=== PATIENT | female | born 1930 | race Caucasian/White ===

== ENCOUNTER → 2016-06-25 | Outpatient (REF) | payer MEDICARE ==
[~2016-06-25] MED LIST: ALBU17IN INH; AMLO10CA PO; AMLO10TA2 PO; ARMIDEX OR; ASCO25TA PO; ASPI81TA11 PO; ASPI81TAEC PO; ATEN50TA2 PO; AZIT250T3 PO; BENA20TA2 PO; CALC600T21 PO; FURO40TA2 PO; GLIP5TAB PO; HYDR1TAB97 PO; INSULANT SC; LEVA500T PO; LOTR10CA PO; MULTCAP PO; PRAV40TA PO; PRED10TA PO; TAMO20TA4 PO; TYLE325T5 PO; VITMTA PO; eye drops; lantus insulin SUBQ
== END ==
LOC: M LAB REF 12:38
PROVIDERS: ATTEND Internal Medicine Medical Oncology
DX: C50.919 Malignant neoplasm of unspecified site of unspecified female breast (principal)

== ENCOUNTER → 2016-07-08 | Outpatient (CLI) | payer MEDICARE ==
[~2016-07-08] MED LIST changes: +HYDR-3713 PO; -HYDR1TAB97 PO
== END ==
LOC: M ONCR 08:33
PROVIDERS: ATTEND Radiology Radiation Oncology
DX: C50.912 Malignant neoplasm of unspecified site of left female breast (principal)

== ENCOUNTER → 2016-07-30 | Outpatient (REF) | payer MEDICARE | LOC: M LAB REF 16:36 | PROVIDERS: ATTEND Internal Medicine Medical Oncology | DX: C50.919 Malignant neoplasm of unspecified site of unspecified female breast (principal) ==

== ENCOUNTER → 2017-01-19 | Outpatient (CLI) | payer MEDICARE ==
[~2017-01-19] MED LIST changes: +ASPI-101 PO; -ASPI81TA11 PO; +AZIT-12 PO; -AZIT250T3 PO; -BENA20TA2 PO; +BENA20TA8 PO; -CALC600T21 PO; +CALC600T60 PO; +LEVA1TAB2 PO; -LEVA500T PO
--- NOTE | 2017-01-19 11:26 | REP ---
CT of the chest without IV contrast: The patient has a history of breast carcinoma and right breast lumpectomy left breast mastectomy. Comparison is the chest CT and 02/07/2016. On the comparison study there was a 2 mm nodule in the left lower lobe. This nodule is again identified today on image 52 and again measures 2 mm. There are no other lung nodules or masses. There are no infiltrates or effusions. The unenhanced thoracic aorta is unremarkable except for occasional calcified atheroma. Cardiac size is borderline enlarged. This is unchanged. There is atheromatous calcification in the mitral annulus, unchanged. There is no pericardial effusion. There are no acute infiltrates or effusions. There is no mediastinal adenopathy. There is no axillary adenopathy, however, there are surgical clips in the axilla bilaterally. This is unchanged. The visualized upper abdominal contents are unremarkable. Surgical clips are again noted in the gallbladder fossa. There is no adrenal mass. Left renal cortical cysts is again identified, unchanged. Impression: No evidence of metastatic disease in the chest. Borderline cardiomegaly. Calcified atheroma in the mitral annulus, unchanged. Left renal cyst, unchanged. No acute infiltrate or effusion. Signed by Prosper Wheat MD 01/19/2017 11:17 A
== END ==
LOC: M RAD 10:16
PROVIDERS: ATTEND Nurse Practitioner Family
DX: R91.8 Other nonspecific abnormal finding of lung field (principal); I51.7 Cardiomegaly; N28.1 Cyst of kidney, acquired; I34.8 Other nonrheumatic mitral valve disorders

== ENCOUNTER → 2017-03-25 | Outpatient (REF) | payer MEDICARE ==
[2017-03-25 14:02] LABS: PERCENT SATURATION 17.3 % (13.2-45.0)
== END ==
LOC: M LAB REF 13:14
PROVIDERS: ATTEND Internal Medicine Medical Oncology
DX: C50.919 Malignant neoplasm of unspecified site of unspecified female breast (principal)

== ENCOUNTER → 2017-05-27 | Outpatient (REF) | payer MEDICARE ==
[2017-05-27 14:21] LABS: PERCENT SATURATION 19.9 % (13.2-45.0)
== END ==
LOC: M LAB REF 13:24
PROVIDERS: ATTEND Internal Medicine Medical Oncology
DX: C50.919 Malignant neoplasm of unspecified site of unspecified female breast (principal)

== ENCOUNTER → 2017-08-12 | Outpatient (REF) | payer MEDICARE ==
[2017-08-14 10:08] LABS: CA15-3 ANTIGEN 15.9 U/ML (<32.4)
== END ==
LOC: M LAB REF 13:08
DX: C50.919 Malignant neoplasm of unspecified site of unspecified female breast (principal)
CPT/HCPCS: 86300

== ENCOUNTER 2017-09-26 12:16 | Emergency (ER) | payer MEDICARE ==
[2017-09-26 13:21] LABS: KETONE, URINE AUTO RFX NEGATIVE (NEGATIVE); MUCUS, URINE RFX SMALL (NEGATIVE); NITRITE, URINE AUTO RFX NEGATIVE (NEGATIVE); RBC, URINE AUTO RFX TNTC /HPF (0-3); RENAL EPITHELIAL CELLS RFX 1 /HPF; SPECIFIC GRAVITY UR AUTO RFX 1.018 (1.002-1.035); SQUAM EPITHELIAL CELL UR AURFX 2 /HPF (0-6); TRANSITIONAL EPITHELIAL AU RFX 1 /HPF
[2017-09-26 13:22] LABS: LEUKOCYTE ESTERASE UR AUTO RFX TRACE (NEGATIVE); WBC, URINE AUTO RFX 15 /HPF (0-3)
[2017-09-26 13:23] LABS: BASO # 0.1 10^3/uL (0.0-0.2); BASO % 0.4 % (0.0-1.0); EOS # 0.1 10^3/uL (0.0-0.50); EOS % 0.9 % (0.0-3.0); HEMATOCRIT 37.6 % (36.0-47.0); HEMOGLOBIN 11.9 g/dl (12.0-15.5); IMMATURE GRANULOCYTE % 0.4 % (0-3.0); LYMPH # 1.9 10^3/uL (1.5-4.5); MEAN CORPUSCULAR HEMOGLOBIN 31.2 pg (27.0-33.0); MEAN CORPUSCULAR HGB CONC 31.6 g/dl (32.0-36.5); MEAN CORPUSCULAR VOLUME 98.4 fl (80.0-96.0); MONO # 0.8 10^3/uL (0.0-0.8); MONO % 6.4 % (0.0-5.0); NEUTROPHILS # 9.5 10^3/uL (1.8-7.7); NEUTROPHILS % 76.9 % (36.0-66.0); PLATELET COUNT, AUTOMATED 326 10^3/uL (150-450); RED BLOOD COUNT 3.82 10^6/uL (4.00-5.40); RED CELL DISTRIBUTION WIDTH 12.6 % (11.5-14.5); WHITE BLOOD COUNT 12.4 10^3/uL (4.0-10.0)
[2017-09-26 13:34] LABS: INR 0.97
[2017-09-26 13:43] LABS: ANION GAP 6 MEQ/L (8-16); BLOOD UREA NITROGEN 40 MG/DL (7-18); CALCIUM LEVEL 10.9 MG/DL (8.8-10.2); CARBON DIOXIDE LEVEL 31 MEQ/L (21-32); CHLORIDE LEVEL 108 MEQ/L (98-107); CREATININE FOR GFR 1.54 MG/DL (0.55-1.30); GLOMERULAR FILTRATION RATE 34.1 (>32); GLUCOSE, FASTING 103 MG/DL (70-100); SODIUM LEVEL 145 MEQ/L (136-145)
== END 2017-09-26 14:37 | disposition home or self-care (01) ==
LOC: M ED 12:16
DX: K60.2 Anal fissure, unspecified (principal); R31.21 Asymptomatic microscopic hematuria; K59.00 Constipation, unspecified; I11.9 Hypertensive heart disease without heart failure; I25.10 Atherosclerotic heart disease of native coronary artery without angina pectoris; E78.00 Pure hypercholesterolemia, unspecified; H40.9 Unspecified glaucoma; K21.9 Gastro-esophageal reflux disease without esophagitis; C50.919 Malignant neoplasm of unspecified site of unspecified female breast; Z90.13 Acquired absence of bilateral breasts and nipples; M81.0 Age-related osteoporosis without current pathological fracture; M54.9 Dorsalgia, unspecified; E11.9 Type 2 diabetes mellitus without complications; Z79.899 Other long term (current) drug therapy; Z79.84 Long term (current) use of oral hypoglycemic drugs; Z79.82 Long term (current) use of aspirin
CPT/HCPCS: 80048

== ENCOUNTER → 2017-10-07 | Outpatient (CLI) | payer MEDICARE | LOC: M RAD 10:25 | DX: C50.919 Malignant neoplasm of unspecified site of unspecified female breast (principal); R91.8 Other nonspecific abnormal finding of lung field; N28.1 Cyst of kidney, acquired; Z90.13 Acquired absence of bilateral breasts and nipples | CPT/HCPCS: 71250 ==

== ENCOUNTER → 2017-10-14 | Outpatient (REF) | payer MEDICARE ==
[2017-10-16 11:47] LABS: CA15-3 ANTIGEN 19.1 U/ML (<32.4)
== END ==
LOC: M LAB REF 12:59
DX: C50.919 Malignant neoplasm of unspecified site of unspecified female breast (principal)
CPT/HCPCS: 86300

== ENCOUNTER → 2017-10-15 | Outpatient (REF) | payer MEDICARE | LOC: M LAB REF 17:21 | DX: N39.0 Urinary tract infection, site not specified (principal) | CPT/HCPCS: 87186 ==

== ENCOUNTER 2017-11-11 12:01 | Day surgery (SDC) | payer MEDICARE ==
[2017-11-11 13:25] LABS: BEDSIDE GLUCOSE 204 MG/DL (83-110)
[2017-11-11] MEDS ORDERED: PROPOFOL 200 MG/20 ML VIAL As Ordered (14:28)
== END 2017-11-11 15:30 | disposition home or self-care (01) ==
LOC: M OPP 12:01
DX: K64.9 Unspecified hemorrhoids (principal); D12.5 Benign neoplasm of sigmoid colon; D12.4 Benign neoplasm of descending colon; K57.30 Diverticulosis of large intestine without perforation or abscess without bleeding; K62.5 Hemorrhage of anus and rectum; R13.13 Dysphagia, pharyngeal phase; K25.9 Gastric ulcer, unspecified as acute or chronic, without hemorrhage or perforation; K44.9 Diaphragmatic hernia without obstruction or gangrene
CPT/HCPCS: 45385

== ENCOUNTER → 2017-12-14 | Outpatient (REF) | payer MEDICARE ==
[2017-12-15 10:06] LABS: CA15-3 ANTIGEN 19.9 U/ML (<32.4)
== END ==
LOC: M LAB REF 13:16
DX: C50.411 Malignant neoplasm of upper-outer quadrant of right female breast (principal); Z17.0 Estrogen receptor positive status [ER+]; C77.3 Secondary and unspecified malignant neoplasm of axilla and upper limb lymph nodes
CPT/HCPCS: 86300

== ENCOUNTER → 2018-02-10 | Outpatient (REF) | payer MEDICARE ==
[2018-02-12 10:37] LABS: CA15-3 ANTIGEN 20.4 U/ML (<32.4)
== END ==
LOC: M LAB REF 17:11
DX: C77.3 Secondary and unspecified malignant neoplasm of axilla and upper limb lymph nodes (principal); Z17.0 Estrogen receptor positive status [ER+]; C50.411 Malignant neoplasm of upper-outer quadrant of right female breast
CPT/HCPCS: 86300

== ENCOUNTER 2018-04-03 15:00 | Emergency (ER) | payer MEDICARE ==
[2018-04-03 15:28] LABS: BASO % 0.4 % (0.0-1.0); EOS # 0.3 10^3/uL (0.0-0.50); EOS % 2.6 % (0.0-3.0); HEMATOCRIT 35.2 % (36.0-47.0); HEMOGLOBIN 11.2 g/dl (12.0-15.5); IMMATURE GRANULOCYTE % 0.3 % (0-3.0); LYMPH # 1.9 10^3/uL (1.5-4.5); LYMPH % 17.8 % (24.0-44.0); MEAN CORPUSCULAR HEMOGLOBIN 31.5 pg (27.0-33.0); MEAN CORPUSCULAR HGB CONC 31.8 g/dl (32.0-36.5); MEAN CORPUSCULAR VOLUME 98.9 fl (80.0-96.0); MONO % 9.9 % (0.0-5.0); NEUTROPHILS # 7.2 10^3/uL (1.8-7.7); PLATELET COUNT, AUTOMATED 321 10^3/uL (150-450); RED BLOOD COUNT 3.56 10^6/uL (4.00-5.40); RED CELL DISTRIBUTION WIDTH 13.8 % (11.5-14.5); VENOUS BASE EXCESS 2.3 (-2.0-2.0); VENOUS HCO3 29.1 MEQ/L (23.0-27.0); VENOUS O2 SATURATION 63.3 % (60.0-80.0); VENOUS PARTIAL PRESSURE O2 35.5 mmHg (30.0-50.0); VENOUS PH 7.334 UNITS (7.330-7.430); VENOUS STANDARD HCO3 25.8 MEQ/L; VENOUS TOTAL CO2 30.8 MEQ/L (24.0-28.0); WHITE BLOOD COUNT 10.4 10^3/uL (4.0-10.0)
[2018-04-03 15:51] LABS: ALBUMIN 3.3 GM/DL (3.2-5.2); ALBUMIN/GLOBULIN RATIO 0.73 (1.00-1.93); ALKALINE PHOSPHATASE 59 U/L (45-117); ALT/SGPT 23 U/L (12-78); ANION GAP 8 MEQ/L (8-16); AST/SGOT 17 U/L (7-37); BILIRUBIN,DIRECT < 0.1 MG/DL (0.0-0.2); BILIRUBIN,TOTAL 0.1 MG/DL (0.2-1.0); BLOOD UREA NITROGEN 33 MG/DL (7-18); CALCIUM LEVEL 9.4 MG/DL (8.8-10.2); CARBON DIOXIDE LEVEL 28 MEQ/L (21-32); CHLORIDE LEVEL 106 MEQ/L (98-107); CREATININE FOR GFR 1.45 MG/DL (0.55-1.30); GLOMERULAR FILTRATION RATE 36.4 (>32); GLUCOSE, FASTING 135 MG/DL (70-100); NT-PRO BNP 1059 PG/ML (<450); POTASSIUM SERUM 4.6 MEQ/L (3.5-5.1); SODIUM LEVEL 142 MEQ/L (136-145); TOTAL PROTEIN 7.8 GM/DL (6.4-8.2)
[2018-04-03] MEDS: FUROSEMIDE 40 MG TAB PO (16:22)
== END 2018-04-03 16:52 | disposition home or self-care (01) ==
LOC: M ED 15:00
DX: I50.9 Heart failure, unspecified (principal); E11.9 Type 2 diabetes mellitus without complications; I10 Essential (primary) hypertension; K21.9 Gastro-esophageal reflux disease without esophagitis
CPT/HCPCS: 71046

== ENCOUNTER → 2018-07-08 | Outpatient (CLI) | payer MEDICARE ==
[~2018-07-08] MED LIST changes: -AMLO10TA2 PO; +AMLO10TA5 PO; -ASPI-101 PO; +ASPI-225 PO; +MIRA3350 PO; -TAMO20TA4 PO; +TAMO20TA8 PO; +TORS10TA3 PO
--- NOTE | 2018-07-08 15:42 | REP ---
Chest two views HISTORY: Shortness of breath Comparison: 04/03/2018 An increase in interstitial markings is present in the lungs consistent with chronic interstitial change. Patchy density is present in the right lower lobe consistent with atelectasis or infiltrate. There is blunting of the right costophrenic angle due to a pleural effusion. The heart is normal in size. The pulmonary vasculature is normal in appearance. The bony structure is intact. IMPRESSION: 1. Chronic interstitial change. 2. Right lower lobe atelectasis or infiltrate. 3. Small right pleural effusion. Electronically Signed by Lee Ferguson MD 07/08/2018 03:34 P
== END ==
LOC: M RAD 15:06
PROVIDERS: ATTEND Internal Medicine
DX: R91.8 Other nonspecific abnormal finding of lung field (principal); J90 Pleural effusion, not elsewhere classified; R06.02 Shortness of breath

== ENCOUNTER 2018-07-09 20:02 | Inpatient (IN) | payer MEDICARE ==
[~2018-07-09] VITALS: Ht 157.5 cm; Wt 72.1 kg
[2018-07-09] MEDS ORDERED: NITROGLYCERIN 2% OINT 1 GM *U/D* PKT TOP ONE (20:45)
[2018-07-09] MEDS ORDERED: IPRATROPIUM 0.5MG/ALBUTEROL 2.5MG INH SOL UD 3ML (DUONEB)(J7620) NEB ONE (20:45)
[2018-07-09] MEDS ORDERED: FUROSEMIDE 100 MG/10 ML VIAL (J1940) IV ONE (20:45)
[2018-07-09 21:22] LABS: BASO % 0.4 % (0.0-1.0); EOS # 0.1 10^3/uL (0.0-0.50); HEMATOCRIT 32.6 % (36.0-47.0); HEMOGLOBIN 10.2 g/dl (12.0-15.5); LYMPH # 1.4 10^3/uL (1.5-4.5); MEAN CORPUSCULAR HEMOGLOBIN 31.5 pg (27.0-33.0); MEAN CORPUSCULAR HGB CONC 31.3 g/dl (32.0-36.5); MEAN CORPUSCULAR VOLUME 100.6 fl (80.0-96.0); MONO # 0.8 10^3/uL (0.0-0.8); MONO % 8.3 % (0.0-5.0); NEUTROPHILS # 7.7 10^3/uL (1.8-7.7); NEUTROPHILS % 75.9 % (36.0-66.0); PLATELET COUNT, AUTOMATED 328 10^3/uL (150-450); RED BLOOD COUNT 3.24 10^6/uL (4.00-5.40); WHITE BLOOD COUNT 10.1 10^3/uL (4.0-10.0)
[2018-07-09 21:33] LABS: INR 1.07; PARTIAL THROMBOPLASTIN TIME 26.3 SECONDS (25.4-37.6)
[2018-07-09 21:47] LABS: BLOOD UREA NITROGEN 61 MG/DL (7-18); CARBON DIOXIDE LEVEL 31 MEQ/L (21-32); CHLORIDE LEVEL 102 MEQ/L (98-107); CPK CREATINE PHOSPHOKINASE 46 U/L (26-192); CREATININE FOR GFR 2.17 MG/DL (0.55-1.30); GLOMERULAR FILTRATION RATE 22.9 (>32); GLUCOSE, FASTING 150 MG/DL (70-100); MB/CK RELATIVE INDEX 2.61 (< OR =4); NT-PRO BNP 1136 PG/ML (<450); POTASSIUM SERUM 4.9 MEQ/L (3.5-5.1); SODIUM LEVEL 140 MEQ/L (136-145); TROPONIN I < 0.02 NG/ML (< 0.10)
[2018-07-09 22:11] LABS: ABG BASE EXCESS 3.4 (-2.0-2.0); ABG HCO3 27.9 MEQ/L (22.0-26.0); ABG O2 SATURATION 97.7 % (95.0-99.0); ABG PARTIAL PRESSURE CO2 41.8 mmHg (35.0-45.0); ABG PARTIAL PRESSURE O2 98.9 mmHg (75.0-100.0); ABG STANDARD HCO3 27.5 MEQ/L (22.0-26.0); ABG TOTAL CO2 29.2 MEQ/L (23.0-31.0); ABG pH (ARTERIAL) 7.442 UNITS (7.350-7.450)
[2018-07-10] MEDS ORDERED: HumaLOG INSULIN (NovoLOG) PER UNIT SC SCH
[2018-07-10] MEDS ORDERED: GLUCOSE 4 GM CHEW TABLET PO PRN ×2 (00:45→03:45)
[2018-07-10] MEDS ORDERED: DEXTROSE 50% 50 ML SYRINGE IV PRN ×2 (00:45→03:45)
[2018-07-10] MEDS ORDERED: GLUCAGON FOR INJ 1 MG VIAL (J1610) SC PRN ×2 (00:45→03:45)
[2018-07-10] MEDS ORDERED: AZITHROMYCIN 250 MG TAB PO SCH (00:49)
[2018-07-10] MEDS ORDERED: IPRATROPIUM 0.5MG/ALBUTEROL 2.5MG INH SOL UD 3ML (DUONEB)(J7620) NEB PRN (01:00)
[2018-07-10 02:00] VITALS: BP 135/79
[2018-07-10] MEDS ORDERED: cefTRIAXone SOD 1 GM in D5W MINI-BAG PLUS 50 ML IV SCH (02:00)
--- NOTE | 2018-07-10 02:19 | REPVR ---
EXAM: CT Chest Without Contrast EXAM DATE/TIME: 07/10/2018 12:38 AM CLINICAL HISTORY: 87 years old, female; Chest pain; Additional info: Assess effusion and assess for consolidation. TECHNIQUE: Axial computed tomography images of the chest without intravenous contrast. All CT scans at this facility use at least one of these dose optimization techniques: automated exposure control; mA and/or kV adjustment per patient size (includes targeted exams where dose is matched to clinical indication); or iterative reconstruction. Coronal and sagittal reformatted images were created and reviewed. MIP reconstructed images were created and reviewed. COMPARISON: CT Chest without contrast 10/07/2017 10:32 AM FINDINGS: Thyroid: There is a 14 mm low attenuation nodule in the left lobe of the thyroid gland, which is stable compared to the prior CT scans on 10/07/2017 and 06/21/2015. Lungs: There is an 8 mm nodular opacity in the right upper lobe (image 40 of the axial series 201), which is new compared to the prior CT scan on 10/07/2017. There are subpleural nodular opacities along the major fissure projecting into the right upper lobe and measuring up to 10 mm, which are new compared to the prior CT scan on 10/07/2017 (images 29-37 of the axial series 202). There are 4 mm and 5 mm subpleural nodules in the right middle lobe (image 55 of the axial series 202). There is a 2 mm pulmonary nodule in the left lower lobe (image 64 of the axial series 201), which is unchanged compared to the prior CT scans on 10/07/2017 and 06/21/2015. There is compressive atelectasis in the right lower lobe. Atelectasis is also noted in the right middle lobe. No lung consolidation is noted. Pleural space: There is a small to moderate right pleural effusion that measures water density and is not loculated. Heart: No cardiomegaly or pericardial effusion is noted. There are extensive mitral annular calcifications. Coronary artery calcifications and aortic valve calcifications are also present. Mediastinum: There is a soft tissue density mass in the mediastinum in the right paratracheal, pretracheal, subcarinal, and right hilar regions, which measures up to 5.4 cm. Aorta: There is no thoracic aortic aneurysm or intramural hematoma. [id number] atherosclerotic calcifications are present. Lymph nodes: There is prevascular lymphadenopathy, with the largest prevascular lymph node measuring 13 mm. Bones/joints: The imaged bony structures are intact. There is no suspicious osteolytic or osteoblastic lesion. There are bridging paraspinal osteophytes at multiple contiguous levels in the thoracic spine, which is compatible with diffuse idiopathic skeletal hyperostosis. Soft tissues: Postoperative changes are noted from a right lumpectomy, with scarring of the right breast. Gallbladder: There are surgical clips in the gallbladder fossa secondary to a cholecystectomy. Spleen: Unremarkable. No splenomegaly is noted. Adrenals: There is a 1.5 cm left adrenal nodule that measures 17 Hounsfield units, which is unchanged compared to the prior CT scans on 10/07/2017 and 06/21/2015 and most compatible with an adrenal adenoma. The right adrenal gland is unremarkable. Kidneys and ureters: There is a 2.5 cm simple cyst in the midpole of the left kidney, which is similar in appearance compared to the prior CT scans on 10/07/2017 and 06/21/2015. The kidneys were not fully imaged. Stomach and bowel: There are diverticula arising from the second and third portions of the duodenum, which were also present in the prior CT scan/ IMPRESSION: 1. 5.4 cm irregular mass in the mediastinum in the right paratracheal, pretracheal, subcarinal, and right hilar regions and prevascular lymphadenopathy, which may indicate metastatic disease. 2. Development of several and nodular opacities in the right lung since the prior chest CT on 10/07/2017, which may indicate metastatic disease. See management guidelines below. 3. Small to moderate right pleural effusion with associated compressive atelectasis. No consolidation. [employer] 2017 GUIDELINES FOR MANAGEMENT OF INCIDENTAL PULMONARY NODULES: Multiple solid nodules >8 mm: In a low risk patient, CT at 3-6 months, then consider CT at 18-24 months. Use most suspicious nodule as guide to management. Follow-up intervals may vary according to size and risk. In a high risk patient, CT at 3-6 months, then at 18-24 months. High Risk Patients as defined in the 2017 Fleischner Society Guidelines: ?History of heavy smoking ?Exposure to asbestos, radium, or uranium ?Family history of lung cancer ?Emphysema and pulmonary fibrosis (IPF in particular) ?Older age ?Sex (females at greater risk than men) ?Race (Blacks and at higher risk) ?Marginal spiculation / suspicious morphology ?Upper lobe location (also apex) ?Multiple nodules (2-5 nodules highest risk) ?Exceptions, such as technically suboptimal scanning Zahira H, Alvin DP, Fred ESPINOZA, et al. Guidelines for Management of Incidental Pulmonary Nodules Detected on CT images: From the Fleischner Society 2017. Radiology, December 2016;284(1):228-243. http://pubs.rsna.org/doi/pdf/[email or web address] Electronically signed by: Boni Flores On 07/10/2018 02:18:34 AM
[2018-07-10] MEDS: METOPROLOL TART 25 MG TABLET PO SCH ×3 (03:17→21:01)
[2018-07-10] MEDS: PRAVASTATIN 20 MG TAB PO SCH ×2 (03:28→21:02)
[2018-07-10] MEDS: LEVEMIR (INSULIN DETEMIR) 1 UNITS/0.01ML SC SCH ×2 (03:29→21:02)
[2018-07-10] MEDS: HEPARIN SOD (PORCINE) 5000 UNITS/ML VIAL SC SCH ×3 (05:20→21:02)
[2018-07-10 06:00] VITALS: BP 143/65
[2018-07-10] MEDS: HumaLOG INSULIN (NovoLOG) PER UNIT SC SCH ×4 (07:30→20:50)
[2018-07-10] MEDS: ACETAMINOPHEN TAB 650MG DOSE (2X325MG) PO SCH ×2 (09:00→21:01)
[2018-07-10] MEDS ORDERED: ATENOLOL 50 MG TAB PO SCH (09:00)
[2018-07-10] MEDS: ASPIRIN 81 MG ENTERIC TAB PO SCH (09:00)
[2018-07-10] MEDS ORDERED: amLODIPine 10 MG TAB PO SCH (09:00)
--- NOTE | 2018-07-10 09:10 | REP ---
AP PORTABLE CHEST: 07/09/2018. Comparison: Chest x-ray 07/08/2018, 04/03/2018. Clinical history: Dyspnea. Findings: The moderate right pleural effusion and some elevation right diaphragm as before. Pulmonary arteries appear prominent. Patient is slightly rotated. Mediastinal widening is likely related to that but other possibilities exist. There is a small amount of fluid tracking along the major fissure. Left lung well inflated and clear. Calcified aorta at the arch without gross aneurysm. Patchy atelectasis or infiltrate perihilar and right lower lobes. Degenerative changes throughout the spine. There are axillary surgical clips on the right side and clips in the left breast. Impression: 1. Right pleural effusion with fluid tracking into the minor fissure with patchy atelectasis or infiltrates right mid and lower lung zone. 2. Hyperinflation and chronic changes in the left lung without effusion or infiltrate. Nodules or other findings could be obscured by the effusion and atelectasis on the right. 3. No carlitos edema. Axillary surgical clips on the right with the left breast or axillary surgical clips. Electronically Signed by Alex Sharpe MD 07/10/2018 01:19 P
[2018-07-10 09:24] LABS: APPEARANCE, URINE CLEAR (CLEAR); BACTERIA, URINE AUTO NEGATIVE (NEGATIVE); BILIRUBIN, URINE AUTO NEGATIVE (NEGATIVE); BLOOD, URINE BLOOD NEGATIVE (NEGATIVE); COLOR, URINE YELLOW (YELLOW); GLUCOSE, URINE (UA) AUTO NEGATIVE (NEGATIVE); KETONE, URINE AUTO NEGATIVE (NEGATIVE); LEUKOCYTE ESTERASE, URINE AUTO TRACE (NEGATIVE); NITRITE, URINE AUTO NEGATIVE (NEGATIVE); PROTEIN, URINE AUTO NEGATIVE (NEGATIVE); RBC, URINE AUTO 0 /HPF (0-3); SPECIFIC GRAVITY URINE AUTO 1.012 (1.002-1.035); SQUAMOUS EPITHELIAL CELL UR AU 0 /HPF (0-6); UROBILINOGEN, URINE AUTO 0.2 mg/dL (0.0-2.0); WBC, URINE AUTO 3 /HPF (0-3)
[2018-07-10] MEDS: TAMOXIFEN CITRATE 10 MG TAB PO SCH (10:57)
[2018-07-10] MEDS: MULTIVITAMINS/MINERALS THERAP 1 TAB PO SCH (10:57)
[2018-07-10] MEDS: ASCORBIC ACID 250 MG TAB PO SCH (10:57)
--- NOTE | 2018-07-10 10:59 | REP ---
RENAL ULTRASOUND COMPLETE: 07/10/2018: Clinical history: Worsening renal failure. Findings: There are no comparison studies. The right kidney is 9.4 x 4 x 3.9 cm. The left kidney 9.8 x 3.4 x 4.4 cm. Cortical echogenicity is preserved but there is cortical atrophy on that right side. There is an upper pole cyst 1.4 x 1.3 cm in increased sinus lipomatosis. No hydronephrosis or hydroureter nor solid mass. In the left kidney there is no hydronephrosis or hydroureter. Exam quality decreased by patient's inability to suspend respiration and the patient terminated the examination before it could be completed. Impression: 1. Limited examination for reasons stated above. Cortical atrophy and sinus lipomatosis on the right with a 1.4 cm upper pole cyst. No hydronephrosis, gross evidence for stone or mass. The cortical echogenicity was grossly intact.2. Some mild atrophy on the left. Limited study. Electronically Signed by Alex Sharpe MD 07/10/2018 01:22 P
[2018-07-10 11:00] VITALS: BP 102/48
--- NOTE | 2018-07-10 12:39 | HPE ---
DATE OF ADMISSION: 07/10/2018 CHIEF COMPLAINT: Worsening dyspnea on exertion, worsening cough, primarily in the morning, and orthopnea. HISTORY OF PRESENT ILLNESS: The patient is an 87-year-old female. She has a known past medical history of hypertension, diabetes, breast cancer, status post bilateral mastectomies, chronic kidney disease stage III, who presented to the emergency room with progressively worsening dyspnea on exertion on exertion and bilateral lower extremity edema and orthopnea. She is unable to sleep lying flat at this point in time, progressively worsening over the last 3 days. Decreased exercise tolerance, barely able to walk 50 feet without being short of breath, and worsening cough of thick whitish sputum, worse in the morning. She denies any chest pain, palpitations. Denies any abdominal pain, constipation, diarrhea, urinary symptoms. Of note, in the patient's history, she was seen here in the emergency room 2 months ago. She is a patient of Dr. Perales, She was subsequently discharged with the concern that she may have underlying congestive heart failure (CHF). She followed up with Dr. Perales. She was chronically on Lasix at this point in time, which was changed to torsemide and she was referred to [facility] where an echocardiogram was completed in the outpatient setting. I am unable to find the results of this echocardiogram. However, the patient states that she believes the results were sent to Dr. Perales and were normal, as far as she is aware. Besides being changed from Lasix 40 mg by mouth daily to torsemide 30 mg by mouth daily, her shortness of breath and orthopnea have actually worsened over the last 3 to 5 days. She denies fevers or chills. She does state that she tends to have a chronic cough for the past month, but has noted over the last week that her sputum production has increased significantly. The cough is primarily pronounced in the morning time, and she is able to clear thick whitish sputum. The cough improves throughout the day, but she continues to cough up thicker sputum than she typically has over the last few months. She does not appear toxic on examination. She denies any fevers or chills. No sick contacts. Chest x-ray in the emergency room shows bilateral pleural effusions, worse on the right when compared to the left. Review of the x-ray from three months prior is unremarkable x-ray. PAST MEDICAL HISTORY: See history of present illness. PAST SURGICAL HISTORY: She had a cholecystectomy and bilateral mastectomies, tonsillectomy, and she had radical lymphadenotomy in conjunction with her breast cancer. HOME MEDICATIONS: - Norvasc - aspirin - atenolol - benazepril - Lantus 30 at night - pravastatin - torsemide - glipizide - metformin - tamoxifen SOCIAL HISTORY: She denies tobacco, alcohol or illicit drug use. ALLERGIES: DORZOLAMIDE. FAMILY HISTORY: Heart disease. REVIEW OF SYSTEMS: 12-point review of systems was completed, all of which were negative except those listed in the history of present illness. VITAL SIGNS: On admission, temperature 98, pulse 82, respirations 18, blood pressure 174/72, saturating 92% on room air. PHYSICAL EXAMINATION: GENERAL: She is a well nourished, elderly female in no apparent distress. HEAD: Normocephalic, atraumatic. Eyes: Extraocular movements are intact. Pupils are equal, round and reactive to light. NECK: Supple with no jugular venous pressure. LUNGS: Unable to discern any crackles or wheezing. Clear at the lung bases, though she has small pleural effusions on the chest x-ray, worse on the right compared to the left. CARDIOVASCULAR: Regular rate and rhythm. She has a grade 2/6 systolic murmur best heard at the left lower sternal border and she has no rubs. ABDOMEN: Appears to be distended but nontender. No rebound or guarding. Hypoactive bowel sounds. EXTREMITIES: She has 1+ bilateral pitting edema. No calf tenderness. SKIN: Appears to be intact. No rashes, lesions or breakdown. NEUROLOGIC: She is alert and oriented times three. No focal deficits appreciated on the examination. LABORATORIES/IMAGING: Completed in the emergency room: White count 10, hemoglobin and hematocrit of 10/32, MCV 100, platelet count of 328. Coag within normal limits. Blood gas performed on 4 liters nasal cannula was 7.44/41/98/27/97. Fingerstick is 138. Chest x-ray, not officially read, shows hilar prominence, likely venous congestion, bilateral pleural effusions, worse on the left compared to the right, similar x-ray completed yesterday, I believe in the outpatient setting. In addition, her laboratories show a BNP of 1136. Initial troponin completed at 2118 hours was unremarkable. Electrocardiogram (EKG) shows underlying right bundle branch block. ASSESSMENT AND PLAN: 1. Dyspnea, multifactorial, likely exacerbation of underlying congestive heart failure (CHF) with superimposed acute renal failure and chronic kidney disease, unclear if there is an underlying pneumonia. We will get a CT of the chest to evaluate. The patient does have a worsening cough with productive sputum. No history of chronic obstructive pulmonary disease (COPD) or reactive airway disease. No history of smoking. 2. Possible congestive heart failure (CHF) exacerbation. We will get an echo. We will rule out acute coronary syndrome with serial troponin, EKG, telemetry. We will get a TSH. Lasix 40 mg IV daily. Strict input and output, daily weights, elevate the head of the bed. We will send a UA to assess for any urinary tract infection (UTI) for possible pneumonia. Again, we will start treatment empirically with ceftriaxone, azithromycin, oxygen as needed, DuoNeb as needed. We will send a sputum culture. Based on the CT of the chest, can deescalate or take the patient off antibiotics if suspicion for pneumonia, which at this point my suspicion for pneumonia is low as the patient does not appear toxic, can remove the antibiotics following the CT, as well as the clinical course. 3. Worsening renal failure. We will hold all nephrotoxic medications. We will continue Lasix and continue to monitor renal function. We will send urine lytes. We will get a renal ultrasound. We will hold benazepril. 4. Chronic medical conditions. For diabetes with nephropathy -- we will hold the metformin and glipizide. We will place on insulin sliding scale and continue Lantus 30 units at night. For hypertension, we will continue Norvasc, benazepril held in the setting of acute renal failure. We will also hold atenolol in the setting of acute renal failure. If he is renally cleared, then place on Lopressor 25 mg twice a day. History of breast cancer -- status post mastectomy. Continue tamoxifen. History of hyperlipidemia -- Continue pravastatin. 5. Supportive. Deep vein thrombosis (DVT) prophylaxis with heparin subcutaneously. Gastrointestinal prophylaxis not indicated. 6. Diet is cardiac, diabetic diet. Fluid restriction of 2 liters per day.
[2018-07-10] MEDS: FUROSEMIDE 40 MG/4 ML VIAL (J1940) IV SCH ×2 (12:54→16:46)
[2018-07-10 14:00] VITALS: BP 115/45
[2018-07-10 14:56] LABS: CPK CREATINE PHOSPHOKINASE 84 U/L (26-192); MB/CK RELATIVE INDEX 2.02 (< OR =4); TROPONIN I < 0.02 NG/ML (< 0.10)
--- NOTE | 2018-07-10 15:02 | CR ---
DATE OF CONSULTATION: 07/10/2018 REQUESTING PROVIDER: Dr. Duval REASON FOR CONSULTATION: I was asked by Dr. Duval to evaluate Ms. Kim for an abnormal chest CT scan. HISTORY OF PRESENT ILLNESS: Ms. Kim is an 87-year-old female who has noted for the past several days that she has had increased shortness of breath. She has noticed it some when she walks around but her biggest difficulty has been lying flat. She can no longer lie flat and has slept in her recliner for the past 3 days. In regards to dyspnea on exertion, she does not do much ambulation and uses a walker or cane around her apartment but has noticed recently that she is more short of breathe with her activities. She will note wheezing when she lies down, it is positional. That has been going on longer than her orthopnea. No chest pain or pressure. She has a cough that is productive of clear sputum in the morning. She also has postnasal drip. She does not cough the rest of the day. No hemoptysis. She notes lower extremity edema, but that has been better since she has had her legs elevated while sleeping in the recliner and also with a change in her diuretic. No paroxysmal nocturnal dyspnea. No gastroesophageal reflux disease (GERD) symptoms. No abdominal pain or emesis. No fevers, chills or drenching night sweats. No known upper respiratory infection or other acute illness. No ill contacts. Ms. Kim was brought to the emergency department last night by her niece because of these symptoms. It was felt at that time that she likely had an acute exacerbation of her underlying congestive heart failure (CHF), as well as superimposed acute on chronic renal failure. As part of her evaluation, she had a chest CT scan, which showed multiple abnormalities, which will be dictated below. It is because of these abnormalities that pulmonary service was consulted. Pertinent past medical history is that Ms. Kim has had several recurrences of breast cancer, for which she is on tamoxifen. She is evaluated every 3 months, her next 3 month evaluation is this coming Thursday. She has been told that she is not eligible for any further chemotherapy or radiation therapy. ALLERGIES: DORZOLAMIDE, BRIMONIDINE. MEDICATIONS: On admission: - acetaminophen 650 mg by mouth twice a day - amlodipine 10 mg by mouth daily - vitamin C 500 mg by mouth daily - aspirin 81 mg by mouth daily - atenolol 50 mg by mouth daily - benazepril 20 mg by mouth daily - calcium 600 mg by mouth twice a day - glipizide/metformin 5/500 two tablets by mouth daily - Lantus insulin 30 units subcutaneously at night - multivitamin one by mouth daily - Pravachol 40 mg by mouth at night - tamoxifen 20 mg by mouth daily - torsemide 30 mg by mouth daily PAST MEDICAL HISTORY: 1. Left breast cancer, originally diagnosed in 2001. A. Status post multiple treatments, including XRT, letrozole chemotherapy 12/12/2006 and anastrozole from 08/2006 to 05/2008. B. Status post left mastectomy 01/03/2007. 2. Right breast cancer, originally diagnosed 04/2010. A. Completed Taxol/ cyclophosphamide chemotherapy in 2010. B. Status post XRT to the right breast. C. Started anastrazole 07/2010. 3. History of right breast recurrence 05/2015. A. Started Fulvestrant 07/2015. B. Status post right simple mastectomy 05/2016. C. Started Tamoxifen 04/2016. 4. Hypertension. 5. Diabetes mellitus. 6. Chronic kidney disease, stage III. 7. Congestive heart failure (CHF). 8. Status post cholecystectomy. 9. Status post tonsillectomy. SOCIAL HISTORY: Ms. Kim is a lifelong nonsmoker. She does not drink alcohol. She lives by herself in an apartment. She has a cleaning person come in once every couple of weeks. She also has a niece who checks on her regularly. No pets. No history of travel to the [facility] or [facility]. She worked previously as a dining room cashier. FAMILY HISTORY: There is a family history of heart disease. REVIEW OF SYSTEMS: Per history of present illness, remainder of review of systems negative. PHYSICAL EXAMINATION: GENERAL: Ms. Kim is lying in bed in no acute distress. She can complete full sentences. She is now lying at about a 30 degree angle, which she feels is lower than what she could do at home prior to admission. VITAL SIGNS: Temperature 98.1, which is her maximum temperature (t-max). Respiratory rate 18, pulse 82, blood pressure 102/48 with a mean arterial pressure of 66, SpO2 is 96% on FiO2 of 3 liters. HEENT: Anicteric. Nares are patent bilaterally. Moist mucosa. Oropharynx is clear. No lesions. No teeth, upper plate. Mallampati IV. Facies normal. NECK: Supple without thyromegaly. Without jugular venous distention (JVD), though difficult exam given body habitus. LYMPHATICS: Without cervical or supraclavicular lymphadenopathy. CHEST: Normal size and shape. LUNGS: Symmetric excursion. Good air entry. Absent breath sounds at the right base with dullness to percussion over the same region, approximately one-fifth to one-fourth of the way up. Otherwise, both lungs without crackles, rhonchi or wheezes. Normal I:E without change in force maneuver. No accessory muscle usage or retractions. Normal to palpation. CARDIOVASCULAR: Regular rate and rhythm. Normal S1, S2. 2/6 systolic murmur heard best along the left lower sternal border. No rub or gallop. ABDOMEN: Obese, soft, nondistended, nontender. No hepatosplenomegaly or masses appreciated. Positive bowel sounds. EXTREMITIES: Without clubbing, cyanosis or significant edema. No calf tenderness. SKIN: No obvious rashes or lesions. NEUROLOGIC: The patient is alert, awake and oriented times three. PSYCHIATRIC: Appropriate affect. LABORATORY DATA: CBC showed a hemoglobin of 10.2, hematocrit 32.6, platelet count 328,000. White blood cell count 10,100 with a differential of 76% neutrophils, 14% lymphocytes, 8% monocytes. Chemistries show a sodium of 140, potassium 4.3, chloride 102, bicarbonate 31, Anion gap 7, BUN 61, creatinine 2.2 (creatinine 1.93 on 05/11). Glucose 150, calcium 10.0, CK 46, CK-MB 1.0, troponin I less than 0.02. BNP 1136. INR 1.07. PTT 26.3. Arterial blood gas was 7.44/42/99 with a measured saturation of 98% and a base excess of 0.3.4. I do not know how much oxygen this was drawn on. All the above laboratories were from 07/09/2018. Urinalysis from this morning was clear with a pH of 5.0, specific gravity 1.012, and was otherwise essentially negative. I reviewed her chest CT scan, as well as the report from earlier today. That CT scan showed normal appearing cardiac silhouette and pulmonary vascular shadows. There is a soft tissue density in the mediastinum with right paratracheal right pretracheal and right hilar lymph nodes measuring up to 5.4 cm. There are several predominantly right sided pulmonary nodules, which, per report, are new compared to chest CT scan from 10/07/2017. The largest is along the right upper lobe fissure measuring 10 mm. There is a small right sided pleural effusion. There is a small region of atelectasis above the effusion. IMPRESSION: 1. Abnormal chest CT scan with mediastinal and right hilar adenopathy and a small right pleural effusion. Unfortunately, the mediastinal and hilar adenopathy is most likely secondary to metastatic disease. The differential would include inflammatory, infectious (no history to suggest that), granulomatous disease, other. She also has several pulmonary nodules on the right side that are also suspicious for metastatic disease versus infectious or inflammatory origin. The right pleural effusion could be a malignant effusion, however, the differential for that finding would also include heart failure. 2. Orthopnea, new symptom. 3. Dyspnea on exertion. She has significant dyspnea on exertion at baseline, but it is has worsened, likely in part related to heart failure. 4. History of both right and left breast cancer with multiple recurrences. 5. Diabetes mellitus. 6. Hypertension. 7. Chronic kidney disease, stage III with worsening on admission. 8. Possible CANDICE base on body habitus. RECOMMENDATIONS: 1. I discussed the findings with Ms. Kim and also the hospitalist service. I discussed the differential for these findings with Ms. Kim. I recommended an oncology consult to comment as to whether or not she would be eligible for any further treatment if this is found to be metastatic breast cancer, or other cancer, which unfortunately is high in the differential. 2. I had a discussion with Ms. Kim as to what she would do if this was a malignancy--whether she would be willing to accept any further chemotherapy if there was an agent available to treat either metastatic breast cancer or another cancer. It does not appear to be a primary lung cancer. She is not certain what she would want to do. I also briefly discussed XRT, but that would only treat the mediastinum and I am not sure if she is a candidate for that anyway. 3. If further evaluation is indicated, I feel the first place to start would be a thoracentesis by radiology. The effusion is small and it would be safest to do under visualization. 4. Risks, benefits, and alternatives to this procedure were discussed with Ms. Kim and questions were answered. 5. I briefly discussed with her that if that procedure was not diagnostic and the decision was to pursue a biopsy, this would be done by EBUS and would require general anesthesia. I did not go into details of that procedure. 6. I understand that oncology will be seeing her today and await their guidance. Thank you for this consultation. We will continue to follow with you. ANDRESSA
[2018-07-10 16:42] LABS: C REACTIVE PROTEIN QUANTITATIV < 0.30 MG/DL (0.00-0.30)
--- NOTE | 2018-07-10 18:49 | IPN ---
DATE: 07/10/2018 The patient was admitted overnight for shortness of breath, dyspnea on exertion and cough, as well as orthopnea. The patient denies any chest pain, pressure, discomfort. No lower extremity edema. Does not have a smoking history. CT scan found hilar mass with surrounding nodules. No fevers or chills. VITAL SIGNS: Temperature 97.5, pulse 84, respirations 19, blood pressure 155/45. Oxygen saturation 96% on 3 liters nasal cannula. LABORATORY DATA: WBC 10.1, hemoglobin and hematocrit 10.2/32.6, platelets 328. Chemistry: Sodium 140, potassium 4.9, chloride 103, bicarbonate 31, BUN 61, creatinine 2.17. Cardiac enzymes negative times three. C-reactive protein negative. PHYSICAL EXAMINATION: GENERAL: The patient is alert, comfortable, in no acute distress. HEENT: Normocephalic, atraumatic. PULMONARY: Minimal rhonchi. No wheeze. CARDIAC: Regular. S1, S2. 2/6 systolic murmur. ABDOMEN: Soft, nontender. Positive bowel sounds. EXTREMITIES: Trace edema of bilateral lower extremities. This is an 87-year-old female patient with underlying medical history of hypertension, diabetes, breast cancer, status post bilateral mastectomy with chemotherapy and radiation, chronic kidney disease stage III, who presented with dyspnea on exertion, orthopnea and worsening cough. 1. Dyspnea, multifactorial. Congestive heart failure (CHF) with diastolic dysfunction versus cancer. C-reactive protein has been negative. We will get respiratory panel. Given C-reactive protein has been negative, antibiotics have been discontinued. CT scan appreciated and showing hilar mass. Pulmonology consulted. Continue diuresis. Echocardiogram has been ordered. Serial cardiac enzymes have been negative. Monitor on telemetry. 2. Acute congestive heart failure (CHF) exacerbation with diastolic dysfunction, possible component of right heart failure with pulmonary artery hypertension. Diuresis. Telemetry. Obstructive sleep apnea protocol. Continue aspirin, beta blockers. Monitor blood pressure. Serials cardiac enzymes have been negative. Echocardiogram has been ordered. 3. Right hilar adenopathy and right small pleural effusion with right hilar mass. Metastatic breast cancer versus primary lung. Consulted production operations inspector and oncologist, Dr. Celena Gomez. Will undergo thoracentesis for diagnosis by interventional radiology. Continue diuresis. Goals of care discussion was held. If thoracentesis is negative, further workup will be discussed with the patient regarding risks and benefits of bronchoscopy with tissue biopsy. Oxygen supplementation. 4. Chronic kidney disease stage III with worsening creatinine. Avoid nephrotoxic agents. Monitor clinically. 5. Diabetes. Holding all medications. Insulin as per protocol. 6. History of breast cancer. Continue home medications, tamoxifen. 7. Dyslipidemia. Continue statin. 8. Hypertension. Continue current medications. 9. Deep vein thrombosis (DVT) prophylaxis. Heparin subcutaneously. DISPOSITION: Pending thoracentesis, clinical improvement. Advanced care planning. Risks and benefits discussed with the patient and family. Prognosis is discussed with the patient and family. Medical Orders for Life Sustaining Treatment (MOLST) form was completed. The patient was made DO NOT RESUSCITATE, DO NOT INTUBATE with no tube feedings. Time spent was 35 minutes.
[2018-07-10 22:00] VITALS: BP 140/64
[2018-07-11 06:00] VITALS: BP 129/61
[2018-07-11] MEDS: HEPARIN SOD (PORCINE) 5000 UNITS/ML VIAL SC SCH ×3 (06:00→22:21)
[2018-07-11 06:32] LABS: HEMATOCRIT 32.2 % (36.0-47.0); HEMOGLOBIN 10.2 g/dl (12.0-15.5); MEAN CORPUSCULAR HEMOGLOBIN 31.6 pg (27.0-33.0); MEAN CORPUSCULAR HGB CONC 31.7 g/dl (32.0-36.5); MEAN CORPUSCULAR VOLUME 99.7 fl (80.0-96.0); PLATELET COUNT, AUTOMATED 321 10^3/uL (150-450); RED BLOOD COUNT 3.23 10^6/uL (4.00-5.40); WHITE BLOOD COUNT 9.4 10^3/uL (4.0-10.0)
[2018-07-11 07:14] LABS: CALCIUM LEVEL 9.4 MG/DL (8.8-10.2); CREATININE FOR GFR 1.77 MG/DL (0.55-1.30); THYROID STIMULATING HORMONE 1.74 uIU/ML (0.358-3.740)
[2018-07-11] MEDS: HumaLOG INSULIN (NovoLOG) PER UNIT SC SCH ×4 (07:30→21:00)
--- NOTE | 2018-07-11 08:10 | ECGEPIP ---
Stationary ECG Study [facility] - ED Test Date: 2018-07-09 Pat Name: LEONA CHENEY Department: Room: [place] [address] Gender: F Bulldozer/Loader/Compactor/Scraper: lisa : 1930 Requested By: ANYI BALDWIN Order Number: [id number] Reading MD: Cris Delaney Measurements Intervals [place] Rate: 82 P: 15 TX: 141 QRS: -32 QRSD: 141 T: 27 QT: 390 QTc: 457 Interpretive Statements SINUS RHYTHM MARKED LEFT AXIS DEVIATION RIGHT BUNDLE BRANCH BLOCK 02/01/[address] T WAVE CHANGES Electronically Signed On 07-11-2018 8:10:37 EST by Cris Delaney
[2018-07-11] MEDS: ACETAMINOPHEN TAB 650MG DOSE (2X325MG) PO SCH ×2 (09:00→22:20)
[2018-07-11] MEDS: FUROSEMIDE 40 MG/4 ML VIAL (J1940) IV SCH ×2 (09:11→17:00)
[2018-07-11] MEDS: METOPROLOL TART 25 MG TABLET PO SCH ×2 (09:12→22:20)
[2018-07-11] MEDS: TAMOXIFEN CITRATE 10 MG TAB PO SCH (09:12)
[2018-07-11] MEDS: ASPIRIN 81 MG ENTERIC TAB PO SCH (09:12)
[2018-07-11] MEDS: ASCORBIC ACID 250 MG TAB PO SCH (09:12)
[2018-07-11] MEDS: MULTIVITAMINS/MINERALS THERAP 1 TAB PO SCH (09:12)
--- NOTE | 2018-07-11 13:00 | ECGEPIP ---
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
[2018-07-11 14:00] VITALS: BP 131/63
--- NOTE | 2018-07-11 14:48 | IPNPDOC ---
Text Note Date of Service The patient was seen on 07/11/18. NOTE con't cough. reported improved sob. denied chest pain, fever/ chill. tolerating PO PHYSICAL EXAMINATION: GENERAL: The patient is alert, comfortable, in no acute distress. HEENT: Normocephalic, atraumatic. PULMONARY: Minimal rhonchi. No wheeze. CARDIAC: Regular. S1, S2. 2/6 systolic murmur. ABDOMEN: Soft, nontender. Positive bowel sounds. EXTREMITIES: Trace edema of bilateral lower extremities. This is an 87-year-old female patient with underlying medical history of hypertension, diabetes, breast cancer, status post bilateral mastectomy with chemotherapy and radiation, chronic kidney disease stage III, who presented with dyspnea on exertion, orthopnea and worsening cough. 1. Dyspnea, multifactorial. Congestive heart failure (CHF) with diastolic dysfunction versus cancer. C-reactive protein has been negative. We will get respiratory panel. Given C-reactive protein has been negative, antibiotics have been discontinued. CT scan appreciated and showing hilar mass. Pulmonology consulted. Continue diuresis. Echocardiogram has been ordered. Serial cardiac enzymes have been negative. Monitor on telemetry. thoracentesis for further workup 2. Acute congestive heart failure (CHF) exacerbation with diastolic dysfunction, possible component of right heart failure with pulmonary artery hypertension. Diuresis. Telemetry. Obstructive sleep apnea protocol. Continue aspirin, beta blockers. Monitor blood pressure. Serials cardiac enzymes have been negative. Echocardiogram has been ordered. I and O, daily weight 3. Right hilar adenopathy and right small pleural effusion with right hilar mass. Metastatic breast cancer versus primary lung. Consulted sql engineer and oncologist, Dr. Celena Gomez. Will undergo thoracentesis for diagnosis by interventional radiology. Continue diuresis. Goals of care discussion was held. If thoracentesis is negative, further workup will be discussed with the patient regarding risks and benefits of bronchoscopy with tissue biopsy. Oxygen supplementation. 4. Chronic kidney disease stage III with worsening creatinine. Avoid nephrotoxic agents. Monitor clinically. 5. Diabetes. Holding oral medications. Insulin as per protocol. 6. History of breast cancer. Continue home medications, tamoxifen. 7. Dyslipidemia. Continue statin. 8. Hypertension. Continue current medications. 9. Deep vein thrombosis (DVT) prophylaxis. Heparin subcutaneously. DISPOSITION: Pending thoracentesis, clinical improvement. Advanced care planning. Poor residential prognosis, wean O2 VS,Ariadna Alegria+O VS, Fishbone, I+O Laboratory Tests 07/11/18 06:20 Red Blood Count 3.23 L, Mean Corpuscular Volume 99.7 H, Mean Corpuscular Hemoglobin 31.6, Mean Corpuscular Hemoglobin Concent 31.7 L, Red Cell Distribution Width 13.2, Calcium Level 9.4 Vital Signs Date Time Temp Pulse Resp B/P (MAP) Pulse Ox O2 Delivery O2 Flow Rate FiO2 07/11/18 09:12 83 129/61 07/11/18 09:00 3.0 07/11/18 06:00 97.3 20 96 Nasal Cannula 07/09/18 22:18 97 I&O- Last 24 Hours up to 6 AM 07/11/18 06:00 Intake Total 720 ml Output Total 750 ml Balance -30 ml ZI BONILLA MD Jul 11, 2018 14:48
[2018-07-11 22:00] VITALS: BP 133/61
[2018-07-11] MEDS: PRAVASTATIN 20 MG TAB PO SCH (22:19)
[2018-07-11] MEDS: LEVEMIR (INSULIN DETEMIR) 1 UNITS/0.01ML SC SCH (22:21)
[2018-07-12] MEDS: HEPARIN SOD (PORCINE) 5000 UNITS/ML VIAL SC SCH ×3 (05:53→22:08)
[2018-07-12 06:00] VITALS: BP 134/63
[2018-07-12 06:19] LABS: HEMATOCRIT 30.7 % (36.0-47.0); HEMOGLOBIN 9.8 g/dl (12.0-15.5); MEAN CORPUSCULAR HEMOGLOBIN 31.8 pg (27.0-33.0); MEAN CORPUSCULAR HGB CONC 31.9 g/dl (32.0-36.5); MEAN CORPUSCULAR VOLUME 99.7 fl (80.0-96.0); PLATELET COUNT, AUTOMATED 293 10^3/uL (150-450); RED BLOOD COUNT 3.08 10^6/uL (4.00-5.40); WHITE BLOOD COUNT 8.1 10^3/uL (4.0-10.0)
[2018-07-12 06:39] LABS: CALCIUM LEVEL 8.9 MG/DL (8.8-10.2); CREATININE FOR GFR 1.62 MG/DL (0.55-1.30); GLOMERULAR FILTRATION RATE 32.1 (>32); POTASSIUM SERUM 3.9 MEQ/L (3.5-5.1)
--- NOTE | 2018-07-12 08:08 | ECHO ---
DATE OF STUDY: 07/10/2018 REFERRING PHYSICIAN: Arleth Ramirez MD INDICATION: Dyspnea. HEIGHT: 157 cm WEIGHT: 78.6 kg 2D MEASUREMENTS: Left atrium 3.9 cm LVOT 1.8 cm Aortic root 2.6 cm Ventricular septum 1.18 cm Posterior wall 1.20 cm Left ventricle diastole 4.4 cm Inferior vena cava 1.86 cm (more than 50% respiratory variation) DOPPLER MEASUREMENTS: Moderate aortic stenosis. No aortic regurgitation. Aortic valve velocity 137 cm/s Peak aortic valve gradient 45 mmHg Mean aortic valve gradient 26 mmHg Aortic valve VTI 68.4 cm LVOT velocity 148 cm /s LVOT VTI 24.5 cm Very mild mitral regurgitation. No mitral stenosis. Mitral E velocity 91.8 cm/s Mitral A velocity 136 cm/s Mitral deceleration time 405 ms Mild tricuspid regurgitation. Estimated right ventricle systolic pressure 46 mmHg assuming a right atrial pressure of 5 mmHg MITRAL ANNULAR TISSUE DOPPLER: E prime lateral 4.82 cm/s DESCRIPTION: Rhythm was sinus. This was a moderately technically difficult echocardiogram. No pericardial effusion. This was a 2D, M mode, color flow Doppler and pulse wave Doppler examination and included mitral annular tissue Doppler. CONCLUSIONS: 1. Normal left ventricle internal dimensions and wall thickness. Normal regional LV wall motion and wall thickening. Normal LV systolic function. LVEF 65% by visual estimate. Grade 1 LV diastolic dysfunction (impaired relaxation filling pattern). 2. Mild left atrial dilatation. 3. Severe focal thickening and focal calcific deposits of a three-cuspid aortic valve. Moderate aortic valve stenosis. No aortic regurgitation. 4. Severe mitral annular calcification. Very mild mitral regurgitation. No mitral stenosis. 5. Suggestive of moderate elevation of estimated right ventricle systolic pressure. 6. Moderately technically difficult echocardiogram. ADDITIONAL COMMENTS AND RECOMMENDATIONS: Suggest a follow-up echocardiogram Doppler in one year.
[2018-07-12] MEDS: ASPIRIN 81 MG ENTERIC TAB PO SCH (09:00)
[2018-07-12] MEDS: MULTIVITAMINS/MINERALS THERAP 1 TAB PO SCH (09:07)
[2018-07-12] MEDS: TAMOXIFEN CITRATE 10 MG TAB PO SCH (09:07)
[2018-07-12] MEDS: ASCORBIC ACID 250 MG TAB PO SCH (09:08)
[2018-07-12] MEDS: ACETAMINOPHEN TAB 650MG DOSE (2X325MG) PO SCH ×2 (09:08→20:47)
[2018-07-12] MEDS: METOPROLOL TART 25 MG TABLET PO SCH ×2 (09:08→20:47)
[2018-07-12] MEDS: HumaLOG INSULIN (NovoLOG) PER UNIT SC SCH ×4 (09:08→22:08)
[2018-07-12] MEDS: FUROSEMIDE 40 MG/4 ML VIAL (J1940) IV SCH (09:09)
--- NOTE | 2018-07-12 14:28 | IPNPDOC ---
Date Seen The patient was seen on 07/12/18. Progress Note SUBJECTIVE: Patient is a 67-year-old female who was seen and examined this morning at bedside. States that she is conscious and she is worried that she might have cancer again even though she has been breast cancer 5 times. She states that she does not have an appetite to eat she is open to having Ensure and like chocolate flavor for she does like the taste of that. She states her shortness of breath has gotten a little better but continues to use oxygen. Patient is worried that her outcome will about hospice and is very tearful during exam. She is going for her thoracocentesis later today and her aspirin was held this morning. She has not a complaints or questions at this time. Denies trouble urinating nausea vomiting or diarrhea. OBJECTIVE PHYSICAL EXAMINATION: VITAL SIGNS: Please see below. GENERAL: Very pleasant 87-year-old female who does not appear in acute distress HEENT: Normocephalic atraumatic CARDIOVASCULAR: Regular rate and rhythm with normal S1 and S2 sounds. 2/6 sy stolic murmur appreciated on the right second intercostal space that radiates towards the left. RESPIRATORY: Bibasilar crackles appreciated with no wheezing. Clear to auscultate the upper lobes. ABDOMINAL: Soft nontender nondistended obese abdomen. Positive bowel sounds in all 4 quadrants EXTREMITIES: No edema appreciated in the lower extremities. PSYCHOLOGICAL: depressed affect. LABORATORY DATA, IMAGING STUDIES, MICROBIOLOGY: Please see below. Echocardiogram: Dr. Chakraborty 06/30/2018 1. Normal left ventricle internal dimensions and wall thickness. Normal regional LV wall motion and wall thickening. Normal LV systolic function. LVEF 65% by visual estimate. Grade 1 LV diastolic dysfunction (impaired relaxation filling pattern). 2. Mild left atrial dilatation. 3. Severe focal thickening and focal calcific deposits of a three-cuspid aortic valve. Moderate aortic valve stenosis. No aortic regurgitation. 4. Severe mitral annular calcification. Very mild mitral regurgitation. No mitral stenosis. 5. Suggestive of moderate elevation of estimated right ventricle systolic pressure. 6. Moderately technically difficult echocardiogram. DVT prophylaxis ordered?: Yes ASSESSMENT AND PLAN: This is an 87-year-old female patient with underlying medical history of hypertension, diabetes, breast cancer, status post bilateral mastectomy with chemotherapy and radiation, chronic kidney disease stage III, who presented with dyspnea on exertion, orthopnea and worsening cough. 1. Dyspnea from pleural effusion likely multifactorial. Congestive heart failure (CHF) with diastolic dysfunction versus malignancy. C-reactive protein has been negative. Respiratory panel negative and blood cultures 2 negative for growth for [address] scan positive for hilar mass. thoracentesis today and fluid will be sent for flow cytometry for further workup. Pulmonology consulted. Echocardiogram normal LV systolic function with an LVEF of 65%. Cardiac enzymes have been negative 3. Continue diuresis changed IV Lasix to by mouth Lasix 40 mg twice a day. If tolerating by mouth transition can consider discontinuing telemetry in 24 hours. 2. Acute congestive heart failure (CHF) exacerbation with diastolic dysfunction, possible right heart failure secondary to increased pulmonary artery hypertension. Echo showed - moderate elevation of estimated right ventricle systolic pressure at 46. PO Diuresis. c/w Telemetry for 24 hours while transitioning to PO Lasix. Obstructive sleep apnea protocol. Continue aspirin, beta blockers. Monitor blood pressure. I and O, daily weight. 3. Right hilar adenopathy and right small pleural effusion with right hilar mass. Metastatic breast cancer versus primary lung. Consulted adventure guide and oncologist, Dr. Gomez. thoracentesis for diagnosis by interventional radiology today. Goals of care discussion was held. If thoracentesis is negative, further workup will be discussed with the patient regarding risks and benefits of bronchoscopy with tissue biopsy. Continue with oxygen supplementation. 4. Chronic kidney disease stage III (Improving). Approved while on IV Lasix. Have transitioned her to by mouth Lasix will monitor creatinine levels and clinically 5. Diabetes. Held oral medication and will continue with Insulin as per protocol. 6. History of breast cancer. Continue home medications, tamoxifen. 7. Dyslipidemia. Continue statin. 8. Hypertension. Continue current medications. 9. Deep vein thrombosis (DVT) prophylaxis. Heparin subcutaneously. 10. Poor appetite. We'll continue with her 2 g sodium diet but also will supplement with Ensure enlive chocolate flavor. DISPOSITION: Pending thoracentesis, clinical improvement. Advanced care planning. Poor lobsterman prognosis, wean O2 VS, I&O, 24H, Fishbone Vital Signs/I&O Vital Signs Date Time Temp Pulse Resp B/P (MAP) Pulse Ox O2 Delivery O2 Flow Rate FiO2 07/12/18 09:08 88 134/63 07/12/18 08:00 1.0 07/12/18 06:00 98.0 20 94 Nasal Cannula 07/09/18 22:18 97 I&O- Last 24 Hours up to 6 AM 07/12/18 06:00 Intake Total 1355 ml Output Total 1100 ml Balance 255 ml Laboratory Data 24H LABS Laboratory Tests 2 07/11/18 16:54: Bedside Glucose (Misc Panel) 186H 07/11/18 21:26: Bedside Glucose (Misc Panel) 230H 07/12/18 02:16: Urine Random Sodium 37, Urine Random Potassium 38.0, Urine Random Chloride 30 07/12/18 05:55: Nucleated Red Blood Cells % (auto) 0.0, Anion Gap 8, Glomerular Filtration Rate 32.1, Blood Urea Nitrogen 37H, Creatinine 1.62H, Sodium Level 140, Potassium Level 3.9, Chloride Level 102, Carbon Dioxide Level 30, Calcium Level 8.9, Lactate Dehydrogenase 149 CBC/BMP Laboratory Tests 07/12/18 05:55 Red Blood Count 3.08 L, Mean Corpuscular Volume 99.7 H, Mean Corpuscular Hemoglobin 31.8, Mean Corpuscular Hemoglobin Concent 31.9 L, Red Cell Distrib ution Width 13.2, Calcium Level 8.9 Microbiology Microbiology 07/10/18 Blood Culture - Preliminary, Resulted No Growth after 48 hours. All Specime... 07/10/18 Blood Culture - Preliminary, Resulted No Growth after 48 hours. All Specime... 07/10/18 Respiratory Virus Panel (PCR) (BIN) - Final, Complete GME ATTESTATION GME ATTESTATION My faculty preceptor for this patient encounter was physically present during the encounter and was fully available. All aspects of the patient interview, examination, medical decision making process, and medical care plan development were reviewed and approved by the faculty preceptor. The faculty preceptor is aware and concurs with the plan as stated in the body of this note and will attest to such by his/her cosignature. ATTENDING NOTE I have both independently examined this patient as well as reviewed the note I have discussed in detail the findings and plan of treatment as documented in the note. I will continue to follow the patient and offer further guidance to the patients care as necessary during this hospital stay. BEATA Brito MD, DO Jul 12, 2018 14:28 ZI BONILLA MD Jul 12, 2018 19:03
[2018-07-12 15:04] LABS: PH BODY FLUID 7.702 UNITS (NOT ESTABLISHED); SOURCE, BODY FLUID pH PLEURAL
[2018-07-12 15:08] LABS: SOURCE, BODY FLUID PLEURAL
[2018-07-12 15:09] LABS: APPEARANCE, BODY FLUID HAZY (CLEAR); PLEURAL FL COLOR PALE YELLOW (COLORLESS)
--- NOTE | 2018-07-12 15:17 | REP ---
CHEST X-RAY: Two views. HISTORY: Post thoracentesis two-view. COMPARISON STUDY: July 09, 2018. FINDINGS: The patient is immediately status post ultrasound-guided right thoracentesis. There is no evidence of pneumothorax or other complication. The right pleural effusion is improved. Right hemidiaphragm remains somewhat elevated. Heart is mildly enlarged. There are clips in the left and right axillary soft tissues. IMPRESSION: Improved right pleural effusion. No pneumothorax seen. Electronically Signed by Omar Daniel MD 07/12/2018 03:27 P
[2018-07-12 15:30] VITALS: BP 170/72
[2018-07-12 15:30] LABS: AMYLASE, BODY FLUID 18 U/L (NOT ESTABLISHED); CHOLESTEROL, BODY FLUID < 50 MG/DL (NOT ESTABLISHED); LDH, BODY FLUID 105 U/L (NOT ESTABLISHED); SOURCE, BODY FLUID AMYLASE PLEURAL; SOURCE, BODY FLUID CHOL PLEURAL; SOURCE, BODY FLUID GLUCOSE PLEURAL; SOURCE, BODY FLUID LDH PLEURAL; SOURCE, BODY FLUID TRIG PLEURAL; TRIGLYCERIDE, BODY FLUID 21 MG/DL (NOT ESTABLISHED)
[2018-07-12 15:31] LABS: SOURCE, BODY FLUID ALBUMIN PLEURAL; SOURCE, BODY FLUID TOT PROTEIN PLEURAL; TOTAL PROTEIN, BODY FLUID 3.7 G/DL (NOT ESTABLISHED)
[2018-07-12 16:00] VITALS: BP 155/66
--- NOTE | 2018-07-12 16:22 | CR ---
DATE OF CONSULTATION: 07/10/2018 The patient is currently an inpatient in [facility] due to shortness of breath and exacerbation of her COPD. The patient had come in to the emergency room on 07/10/2018. She was found to be in congestive heart failure at that time. Her chest x-ray had shown a moderate right pleural effusion and some elevation of her right diaphragm which had been seen prior. The patient had shown some mediastinal widening and a small amount of fluid tracking around the major fissure. The left lung was well infiltrated and clear. There appeared to be hyperinflation and chronic changes in the left lung without effusion or infiltrate, nodules, or other findings. The patient has been seen by pulmonary as well as the hospitalists. There is some interest in the right lung area. She had a chest CT done on 07/10/2018, and she was found to have an 8 mm nodular opacity in the right upper lobe. This was new as compared to her prior CT scan of 10/07/2017. There also appears to be some subpleural nodular opacities along the major fissure that appear to be projecting into the right upper lobe measuring up to 10 mm which are also new in comparison to her prior CT done in September. There are 4 mm and 5 mm subpleural nodules in the right middle lobe and there is a 2 mm pulmonary nodule in the left lower lobe which is unchanged compared to prior CT scans done in September. Some compressive atelectasis is also noted as well. There is a soft tissue density mass in the mediastinum in the right paratracheal, pretracheal, subcarinal and right hilar regions which measures up to 5.4 cm and the adrenal glands show a 1.5 cm left adrenal nodule which is unchanged and compatible with an adrenal adenoma. The concern is that she has multiple nodules, carcinoma of the breast with a new 5.4 cm mediastinal area. The patient is currently being managed for her congestive heart failure and concerns are is this is a new second primary or is this an extension of her metastatic disease. 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 The patient had an axillary lymph node dissection, 0 lymph nodes were negative. She had undergone adjuvant radiation therapy of the left breast at that time and had been started on tamoxifen and then was treated switched over to letrozole. The patient developed an abnormal Pap smear and then was switched back to the anastrozole from August 2006 to May 2008. The patient had a second carcinoma of the breast on the right in 2009 for a 2.8 cm infiltrating ductal carcinoma ER positive, NJ positive, HER2/carlito negative with 2/15 lymph nodes positive at this time. She underwent adjuvant chemotherapy with Taxol and cyclophosphamide which she completed in 2010 and then also had radiation therapy to the right breast and was started on the anastrozole in 2010. 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 She then developed a right breast recurrence in the right axillary lymph node in May 2015 and underwent a right axillary excision, again pathology showing infiltrating ductal carcinoma. An excisional biopsy in 2015 showed grade 2 and she underwent a simple right mastectomy in 2015 with a 1.5 cm infiltrating ductal carcinoma. This one was ER/NJ positive and HER2/carlito negative and was started on therapy with tamoxifen which she is currently now on. On her other past medical history, she has type 2 diabetes, hypertension, glaucoma and above-noted cholecystectomy and tonsillectomy. SOCIAL HISTORY: She is . She lives with her who is in a fci. Negative for tobacco. Negative for alcohol. FAMILY HISTORY: Is otherwise noted for coronary artery disease. No breast cancer is noted. CURRENT MEDICATIONS: - acetaminophen 650 mg by mouth twice a day - amlodipine besylate 10 mg by mouth daily - vitamin C 500 mg by mouth daily - aspirin 81 mg by mouth daily - atenolol 50 mg by mouth daily - benazepril 20 mg by mouth daily - calcium 600 mg by mouth twice a day - glipizide/metformin 5/500 two tablets by mouth daily - insulin 30 units subcutaneous nightly - pravastatin 40 mg by mouth nightly - tamoxifen citrate 20 mg by mouth daily - torsemide 30 mg daily ALLERGIES: Are to BRIMONIDINE, DORZOLAMIDE. On the patient's review of systems, she relates extreme fatigue, tiredness, lethargy, shortness of breath. No chest pain. She denies any hemoptysis or phlegm production. She has had mild nausea, anorexia. No diarrhea, constipation. Some stress incontinence but no hematuria. No current back pain. Denies any musculoskeletal aches or pains. Her activities have been somewhat limited. She gets up, is able to take care of herself, activities of daily living, but no numbness or tingling of the fingertips or toes. On her physical examination, she has a weight of 78.6 kg. Her temperature is 98.1, pulse 82, respiratory rate is 18, blood pressure is 102/48. Her HEENT is normocephalic, atraumatic. Pupils equal, round, and reactive to light. Extraocular muscles intact. Sclerae is otherwise white, nonicteric. Oropharynx is otherwise clear. Her neck is supple with no adenopathy. Chest is decreased breath sounds at the bases, specifically on the right. Her abdomen is large globoid, no guarding, no rebound, no ascites, no tenderness. She has about +1 pitting edema on the lower extremities. On her imaging studies, her CT scan of the chest is noted as above. Renal ultrasound was also done which shows cortical atrophy, sinus lipomatosis on the right with a 1.4 cm upper pole cyst. No hydronephrosis, gross evidence of stone or mass. Cortical echogenicity was grossly intact and some mild atrophy on the left with a limited study. On her laboratories, she has a WBC count of 10.1, hemoglobin of 10.2/32.6, MCV is 100.6, RDW was 13.4, platelets of 328, neutrophils of 75.9, lymphocytes of 14. On her chemistries, sodium is 140, potassium is 4.9, chloride 102, CO2 31 and BUN of 61, creatinine is 2.17. IMPRESSION: At this time, is new mediastinal mass with a history of multiple recurrent episodes of carcinoma of the breast with one of those episodes being ER negative, NJ negative. This is likely a metastatic lesion, however biopsy confirmation would be helpful. In her current condition with CHF and her current pulmonary condition, this may not be able to be done as an inpatient on this admission and the patient's condition may be optimized. She has already seen anastrozole on tamoxifen therapy and may benefit from Faslodex and Ibrance as her next treatment options. However risk assessment for biopsy confirmation will be done with pulmonary and oncology.
[2018-07-12] MEDS: SODIUM CHLORIDE NASAL 0.65% SPRAY BTL (OCEAN) SCH ×2 (17:35→20:48)
[2018-07-12] MEDS: FUROSEMIDE 40 MG TAB PO SCH (17:35)
--- NOTE | 2018-07-12 19:14 | REP ---
ULTRASOUND-GUIDED RIGHT THORACENTESIS The procedure was performed under the direct supervision of Dr. Daniel. The risks and benefits of the procedure were explained to the patient and informed consent was obtained. The right pleural effusion was localized using ultrasound guidance. The skin was prepped and draped in a sterile fashion. 1% lidocaine was used as a local anesthetic. Using ultrasound guidance an 8-Amharic multi side-hole catheter was inserted using trocar technique. 440 ml of yellow fluid was withdrawn with a sample sent to the lab for analysis. The patient tolerated the procedure well and there were no immediate complications. After the appropriate amount of monitored convalescence the patient was discharged from the department. Reviewed by JC Flores 07/12/2018 04:27 P Electronically Signed by Omar Daniel MD 07/12/2018 07:05 P
[2018-07-12] MEDS: PRAVASTATIN 20 MG TAB PO SCH (20:47)
[2018-07-12 22:00] VITALS: BP 132/62
[2018-07-12] MEDS: LEVEMIR (INSULIN DETEMIR) 1 UNITS/0.01ML SC SCH (22:09)
[2018-07-13] MEDS: HEPARIN SOD (PORCINE) 5000 UNITS/ML VIAL SC SCH ×3 (05:34→21:57)
[2018-07-13 06:00] VITALS: BP 133/63
[2018-07-13 06:32] LABS: HEMATOCRIT 30.3 % (36.0-47.0); HEMOGLOBIN 9.7 g/dl (12.0-15.5); MEAN CORPUSCULAR HEMOGLOBIN 31.1 pg (27.0-33.0); MEAN CORPUSCULAR VOLUME 97.1 fl (80.0-96.0); PLATELET COUNT, AUTOMATED 290 10^3/uL (150-450); RED BLOOD COUNT 3.12 10^6/uL (4.00-5.40); WHITE BLOOD COUNT 8.8 10^3/uL (4.0-10.0)
[2018-07-13 07:01] LABS: CALCIUM LEVEL 9.1 MG/DL (8.8-10.2); CREATININE FOR GFR 1.44 MG/DL (0.55-1.30); GLOMERULAR FILTRATION RATE 36.7 (>32); POTASSIUM SERUM 3.6 MEQ/L (3.5-5.1)
[2018-07-13] MEDS: TAMOXIFEN CITRATE 10 MG TAB PO SCH (08:47)
[2018-07-13] MEDS: MULTIVITAMINS/MINERALS THERAP 1 TAB PO SCH (08:47)
[2018-07-13] MEDS: ASCORBIC ACID 250 MG TAB PO SCH (08:47)
[2018-07-13] MEDS: ASPIRIN 81 MG ENTERIC TAB PO SCH (08:47)
[2018-07-13] MEDS: ACETAMINOPHEN TAB 650MG DOSE (2X325MG) PO SCH ×2 (08:47→21:00)
[2018-07-13] MEDS: HumaLOG INSULIN (NovoLOG) PER UNIT SC SCH ×4 (08:47→21:58)
[2018-07-13] MEDS: METOPROLOL TART 25 MG TABLET PO SCH ×2 (08:47→21:57)
--- NOTE | 2018-07-13 08:47 | REP ---
PORTABLE CHEST X-RAY: Single view. HISTORY: Shortness of breath. COMPARISON STUDY: July 12, 2018. FINDINGS: There is persistent mild blunting of the right lateral pleural angle and elevation of the right hemidiaphragm unchanged from yesterday's study. Today's view is exposed at a somewhat lesser level of inspiration. No new infiltrate is seen. There is fissural thickening on the right. Bilateral axillary surgical clips are again noted. IMPRESSION: No new infiltrate. Lesser level of inspiration. Right pleural angle blunting. Electronically Signed by Omar Daniel MD 07/13/2018 05:28 P
[2018-07-13] MEDS: FUROSEMIDE 40 MG TAB PO SCH ×2 (08:48→18:05)
[2018-07-13] MEDS: SODIUM CHLORIDE NASAL 0.65% SPRAY BTL (OCEAN) SCH ×3 (08:48→21:58)
--- NOTE | 2018-07-13 09:46 | IPNPDOC ---
Date Seen The patient was seen on 07/13/18. Progress Note s/p thoracentesis 07/12/18 with improved breathing. no HENDERSON. Pt worried " that I have 2months to 2years to live, I was told." "I can't go home. I'm too weak." no chest pain, pressure, tightness, no dizziness, lightheadedness. "My legs are weak." PHYSICAL EXAMINATION: GENERAL: The patient is alert, comfortable, in no acute distress. HEENT: Normocephalic, atraumatic. PULMONARY: Minimal rhonchi. No wheeze. CARDIAC: Regular. S1, S2. 2/6 systolic murmur. ABDOMEN: Soft, nontender. Positive bowel sounds. EXTREMITIES: Trace edema of bilateral lower extremities. This is an 87-year-old female patient with underlying medical history of hypertension, diabetes, breast cancer, status post bilateral mastectomy with chemotherapy and radiation, chronic kidney disease stage III, who presented with dyspnea on exertion, orthopnea and worsening cough. 1. Dyspnea, multifactorial. Congestive heart failure (CHF) with diastolic dysfunction versus cancer. C-reactive protein has been negative. We will get respiratory panel. Given C-reactive protein has been negative, antibiotics have been discontinued. CT scan appreciated and showing hilar mass. Pulmonology consulted. Continue diuresis. Echocardiogram has been ordered. Serial cardiac enzymes have been negative. Monitor on telemetry. thoracentesis for further workup 2. Acute congestive heart failure (CHF) exacerbation with diastolic dysfunction, possible component of right heart failure with pulmonary artery hypertension. Diuresis. Telemetry. Obstructive sleep apnea protocol. Continue aspirin, beta blockers. Monitor blood pressure. Serials cardiac enzymes have been negative. Echocardiogram has been ordered. I and O, daily weight 3. Right hilar adenopathy and right small pleural effusion with right hilar mass. Metastatic breast cancer versus primary lung. Consulted gi tech and oncologist, Dr. Celena Gomez. s/p thoracentesis for diagnosis by interventional radiology. Continue diuresis. Goals of care discussion was held. If thoracentesis is negative, further workup will be discussed with the patient regarding risks and benefits of bronchoscopy with tissue biopsy. Oxygen supplementation. 4. Chronic kidney disease stage III with worsening creatinine. Avoid nephrotoxic agents. Monitor clinically. 5. Diabetes. Holding oral medications. Insulin as per protocol. 6. History of breast cancer. Continue home medications, tamoxifen. 7. Dyslipidemia. Continue statin. 8. Hypertension. Continue current medications. 9. Deep vein thrombosis (DVT) prophylaxis. Heparin subcutaneously. DISPOSITION: Pending thoracentesis result if malignancy. placement VS, I&O, 24H, Fishbone Vital Signs/I&O Vital Signs Date Time Temp Pulse Resp B/P (MAP) Pulse Ox O2 Delivery O2 Flow Rate FiO2 07/13/18 06:00 93 20 88 Room Air 07/12/18 22:00 97.8 132/62 (85) 07/12/18 16:00 1.0 07/09/18 22:18 97 I&O- Last 24 Hours up to 6 AM 07/13/18 06:00 Intake Total 1588 ml Output Total 1400 ml Balance 188 ml Laboratory Data 24H LABS Laboratory Tests 2 07/12/18 11:57: Bedside Glucose (Misc Panel) 234H 07/12/18 14:29: Body Fluid pH 7.702, Body Fluid pH Source PLEURAL, Body Fluid WBC (Auto) 1838H, Body Fluid RBC (Auto) < 2, Body Fluid Mononuclear Cells % Auto 98.4H, Fluid Polymorphonuclear Cell % Auto 1.6H, Body Fluid Glucose Source PLEURAL, Body Fluid Glucose 245, Body Fluid Protein Source PLEURAL, Body Fluid Total Protein 3.7, Body Fluid Albumin Source PLEURAL, Body Fluid Albumin 2.4, Body Fluid LDH Source PLEURAL, Body Fluid Lactate Dehydrogenase 105, Body Fluid Amylase Source PLEURAL, Body Fluid Amylase 18, Body Fluid Cholesterol < 50, Body Fluid Cholesterol Source PLEURAL, Body Fluid Triglyceride Source PLEURAL, Body Fluid Triglycerides 21, Pleural Fluid Source PLEURAL, Pleural Fluid Color PALE YELLOW, Pleural Fluid Appearance HAZY 07/12/18 16:39: Bedside Glucose (Misc Panel) 186H 07/12/18 20:08: Bedside Glucose (Misc Panel) 313H 07/13/18 05:56: Nucleated Red Blood Cells % (auto) 0.0 CBC/BMP Laboratory Tests 07/13/18 05:56 Red Blood Count 3.12 L, Mean Corpuscular Volume 97.1 H, Mean Corpuscular Hemoglobin 31.1, Mean Corpuscular Hemoglobin Concent 32.0, Red Cell Distribution Width 13.2 Microbiology Microbiology 07/10/18 Blood Culture - Preliminary, Resulted No Growth after 48 hours. All Specime... 07/10/18 Blood Culture - Preliminary, Resulted No Growth after 48 hours. All Specime... 07/12/18 Acid Fast Stain, Received Pending 07/12/18 Mycobacterial Culture, Received Pending 07/12/18 Fungal Smear, Received Pending 07/12/18 Fungal Culture, Received Pending 07/12/18 Gram Stain - Final, Resulted 07/12/18 Anaerobic Culture, Resulted Pending 07/12/18 Body Fluid Culture, Received Pending 07/10/18 Respiratory Virus Panel (PCR) (BIN) - Final, Complete NESTOR ODELL MD Jul 13, 2018 06:44
[2018-07-13 14:00] VITALS: BP 138/57
[2018-07-13] MEDS: PRAVASTATIN 20 MG TAB PO SCH (21:56)
[2018-07-13] MEDS: LEVEMIR (INSULIN DETEMIR) 1 UNITS/0.01ML SC SCH (21:58)
[2018-07-13 22:00] VITALS: BP 147/64
[2018-07-14] MEDS: HEPARIN SOD (PORCINE) 5000 UNITS/ML VIAL SC SCH ×3 (05:32→21:05)
[2018-07-14 06:00] VITALS: BP 121/69
[2018-07-14 06:16] LABS: HEMATOCRIT 31.8 % (36.0-47.0); HEMOGLOBIN 10.1 g/dl (12.0-15.5); MEAN CORPUSCULAR HEMOGLOBIN 31.2 pg (27.0-33.0); MEAN CORPUSCULAR HGB CONC 31.8 g/dl (32.0-36.5); MEAN CORPUSCULAR VOLUME 98.1 fl (80.0-96.0); PLATELET COUNT, AUTOMATED 298 10^3/uL (150-450); RED BLOOD COUNT 3.24 10^6/uL (4.00-5.40); WHITE BLOOD COUNT 8.2 10^3/uL (4.0-10.0)
[2018-07-14 06:42] LABS: CALCIUM LEVEL 8.8 MG/DL (8.8-10.2); CREATININE FOR GFR 1.5 MG/DL (0.55-1.30); GLOMERULAR FILTRATION RATE 35.1 (>32); POTASSIUM SERUM 3.6 MEQ/L (3.5-5.1)
[2018-07-14] MEDS: HumaLOG INSULIN (NovoLOG) PER UNIT SC SCH ×4 (08:43→21:04)
[2018-07-14] MEDS: TAMOXIFEN CITRATE 10 MG TAB PO SCH (08:43)
[2018-07-14] MEDS: ASPIRIN 81 MG ENTERIC TAB PO SCH (08:43)
[2018-07-14] MEDS: ACETAMINOPHEN TAB 650MG DOSE (2X325MG) PO SCH ×2 (08:43→21:00)
[2018-07-14] MEDS: MULTIVITAMINS/MINERALS THERAP 1 TAB PO SCH (08:44)
[2018-07-14] MEDS: FUROSEMIDE 40 MG TAB PO SCH ×2 (08:44→17:29)
[2018-07-14] MEDS: METOPROLOL TART 25 MG TABLET PO SCH ×2 (08:44→21:03)
[2018-07-14] MEDS: ASCORBIC ACID 250 MG TAB PO SCH (08:44)
[2018-07-14] MEDS: SODIUM CHLORIDE NASAL 0.65% SPRAY BTL (OCEAN) SCH ×3 (08:45→21:05)
--- NOTE | 2018-07-14 09:07 | IPNPDOC ---
Date Seen The patient was seen on 07/14/18. Progress Note SUBJECTIVE: Patient was seen and examined at the bedside. chart has been reviewed. Path for cytology from thoracentesis not available yet. Pt says, "I'm very worried about this. Everybody says it 's a new cancer. My legs are still weak. I can't go home. " denies any sob, chest pain, palpitations. li ghtheadedness. OBJECTIVE: VITALS: PLS SEE BELOW PHYSICAL EXAMINATION: GENERAL: The patient is alert, comfortable, in no acute distress. HEENT: Normocephalic, atraumatic. PULMONARY: Minimal rhonchi. No wheeze. CARDIAC: Regular. S1, S2. 2/6 systolic murmur. ABDOMEN: Soft, nontender. Positive bowel sounds. EXTREMITIES: Trace edema of bilateral lower extremities. This is an 87-year-old female patient with underlying medical history of hypertension, diabetes, breast cancer, status post bilateral mastectomy with chemotherapy and radiation, chronic kidney disease stage III, who presented with dyspnea on exertion, orthopnea and worsening cough. 1. Dyspnea, multifactorial. Congestive heart failure (CHF) with diastolic dysfunction versus cancer. C-reactive protein has been negative. We will get respiratory panel. Given C-reactive protein has been negative, antibiotics have been discontinued. CT scan appreciated and showing hilar mass. Pulmonology consulted. Continue diuresis. Echocardiogram has been ordered. Serial cardiac enzymes have been negative. Monitor on telemetry. thoracentesis for further workup 2. Acute congestive heart failure (CHF) exacerbation with diastolic dysfunction, possible component of right heart failure with pulmonary artery hypertension. Diuresis. Telemetry. Obstructive sleep apnea protocol. Continue aspirin, beta blockers. Monitor blood pressure. Serials cardiac enzymes have been negative. Echocardiogram has been ordered. I and O, daily weight 3. Right hilar adenopathy and right small pleural effusion with right hilar mass. Metastatic breast cancer versus primary lung. Consulted bench hand machine and oncologist, Dr. Celena Gomez. s/p thoracentesis for diagnosis by interventional radiology. Continue diuresis. Goals of care discussion was held. If thoracentesis is negative, further workup will be discussed with the patient regarding risks and benefits of bronchoscopy with tissue biopsy. Oxygen supplementation. awaiting cytology from thoracentesis. 4. Chronic kidney disease stage III with worsening creatinine. Avoid nephrotoxic agents. Monitor clinically. 5. Diabetes. Holding oral medications. Insulin as per protocol. 6. History of breast cancer. Continue home medications, tamoxifen. 7. Dyslipidemia. Continue statin. 8. Hypertension. Continue current medications. 9. Deep vein thrombosis (DVT) prophylaxis. Heparin subcutaneously. DISPOSITION: placement VS, I&O, 24H, Fishbone Vital Signs/I&O Vital Signs Date Time Temp Pulse Resp B/P (MAP) Pulse Ox O2 Delivery O2 Flow Rate FiO2 07/14/18 06:00 98.1 96 13 121/69 (86) 91 Room Air 07/12/18 16:00 1.0 07/09/18 22:18 97 I&O- Last 24 Hours up to 6 AM 07/14/18 06:00 Intake Total 1290 ml Output Total 1700 ml Balance -410 ml Laboratory Data 24H LABS Laboratory Tests 2 07/13/18 16:36: Bedside Glucose (Misc Panel) 269H 07/14/18 05:35: Nucleated Red Blood Cells % (auto) 0.0, Anion Gap 8, Glomerular Filtration Rate 35.1, Blood Urea Nitrogen 31H, Creatinine 1.50H, Sodium Level 139, Potassium Level 3.6, Chloride Level 100, Carbon Dioxide Level 31, Calcium Level 8.8 CBC/BMP Laboratory Tests 07/14/18 05:35 Red Blood Count 3.24 L, Mean Corpuscular Volume 98.1 H, Mean Corpuscular Hemoglobin 31.2, Mean Corpuscular Hemoglobin Concent 31.8 L, Red Cell Distribution Width 13.3, Calcium Level 8.8 Microbiology Microbiology 07/10/18 Blood Culture - Preliminary, Resulted No Growth after 72 hours. All specime... 07/10/18 Blood Culture - Preliminary, Resulted No Growth after 72 hours. All specime... 07/12/18 Acid Fast Stain, Received Pending 07/12/18 Mycobacterial Culture, Received Pending 07/12/18 Fungal Smear, Received Pending 07/12/18 Fungal Culture, Received Pending 07/12/18 Gram Stain - Final, Resulted 07/12/18 Anaerobic Culture, Resulted Pending 07/12/18 Body Fluid Culture, Received Pending 07/10/18 Respiratory Virus Panel (PCR) (BIN) - Final, Complete NESTOR ODELL MD Jul 14, 2018 06:55
[2018-07-14 14:00] VITALS: BP 118/66
[2018-07-14] MEDS: PRAVASTATIN 20 MG TAB PO SCH (21:03)
[2018-07-14] MEDS: LEVEMIR (INSULIN DETEMIR) 1 UNITS/0.01ML SC SCH (21:04)
[2018-07-14 22:00] VITALS: BP 137/68
[2018-07-15 06:00] VITALS: BP 121/80
[2018-07-15] MEDS: HEPARIN SOD (PORCINE) 5000 UNITS/ML VIAL SC SCH ×3 (06:16→21:14)
[2018-07-15 06:42] LABS: HEMATOCRIT 32.1 % (36.0-47.0); HEMOGLOBIN 10.2 g/dl (12.0-15.5); MEAN CORPUSCULAR HEMOGLOBIN 30.9 pg (27.0-33.0); MEAN CORPUSCULAR HGB CONC 31.8 g/dl (32.0-36.5); MEAN CORPUSCULAR VOLUME 97.3 fl (80.0-96.0); PLATELET COUNT, AUTOMATED 280 10^3/uL (150-450); WHITE BLOOD COUNT 7.8 10^3/uL (4.0-10.0)
[2018-07-15 06:58] LABS: CALCIUM LEVEL 8.6 MG/DL (8.8-10.2); CREATININE FOR GFR 1.33 MG/DL (0.55-1.30); GLOMERULAR FILTRATION RATE 40.3 (>32); POTASSIUM SERUM 3.6 MEQ/L (3.5-5.1)
[2018-07-15] MEDS: ASPIRIN 81 MG ENTERIC TAB PO SCH (09:19)
[2018-07-15] MEDS: HumaLOG INSULIN (NovoLOG) PER UNIT SC SCH ×4 (09:19→21:00)
[2018-07-15] MEDS: MULTIVITAMINS/MINERALS THERAP 1 TAB PO SCH (09:19)
[2018-07-15] MEDS: ASCORBIC ACID 500 MG TAB PO SCH (09:20)
[2018-07-15] MEDS: ACETAMINOPHEN TAB 650MG DOSE (2X325MG) PO SCH ×3 (09:20→21:15)
[2018-07-15] MEDS: FUROSEMIDE 40 MG TAB PO SCH ×2 (09:20→17:38)
[2018-07-15] MEDS: METOPROLOL TART 25 MG TABLET PO SCH ×2 (09:20→21:16)
[2018-07-15] MEDS: TAMOXIFEN CITRATE 10 MG TAB PO SCH (09:20)
[2018-07-15] MEDS: SODIUM CHLORIDE NASAL 0.65% SPRAY BTL (OCEAN) SCH ×3 (09:21→21:16)
--- NOTE | 2018-07-15 12:48 | IPNPDOC ---
Date Seen The patient was seen on 07/15/18. Progress Note SUBJECTIVE: Patient was seen and examined at the bedside. chart has been reviewed. She still c/o productive cough that keeps her up at night. no fever or chills. Path for cytology from thoracentesis :adenocarcinoma most likely from recurrent metastatic breast cancer, awaiting tumor markers, before oncology discusses treatment options with pt and her nieceand nephew. Pt says, "I'm very worried. My legs are still weak. I can't go home. How much time do I have?" denies any sob, chest pain, palpitations. lightheadedness. Pt feels very depressed about the new findings, but does not want to take any antidepressants. "Nothing makes me happy. I don't know what to do." OBJECTIVE: VITALS: PLS SEE BELOW PHYSICAL EXAMINATION: GENERAL: The patient is alert, comfortable, in no acute distress. HEENT: Normocephalic, atraumatic. PULMONARY: Minimal rhonchi. No wheeze. CARDIAC: Regular. S1, S2. 2/6 systolic murmur. ABDOMEN: Soft, nontender. Positive bowel sounds. EXTREMITIES: Trace edema of bilateral lower extremities. This is an 87-year-old female patient with underlying medical history of hypertension, diabetes, breast cancer, status post bilateral mastectomy with chemotherapy and radiation, chronic kidney disease stage III, who presented with dyspnea on exertion, orthopnea and worsening cough. 1. Dyspnea, multifactorial. Congestive heart failure (CHF) with diastolic dysfunction, malignant pleural effusion from recurrent adenoca of breast. C-reactive protein has been negative. We will get respiratory panel. Given C-reactive protein has been negative, antibiotics have been discontinued. CT scan appreciated and showing hilar mass. Pulmonology signed off. Continue diuresis. Echocardiogram has been ordered. Serial cardiac enzymes have been negative. recheck CXR bnp, sputum cx. 2. Acute congestive heart failure (CHF) exacerbation with diastolic dysfunctio n, possible component of right heart failure with pulmonary artery hypertension. Diuresis. Telemetry. Obstructive sleep apnea protocol. Continue aspirin, beta blockers. Monitor blood pressure. Serials cardiac enzymes have been negative. Echocardiogram has been ordered. I and O, daily weight 3. Adenocarcinoma from recurrent breast cancer with Right hilar adenopathy and right small pleural effusion s/p thoracentesis. awaiting tumor markers. onc to meet w family for prognosis and treatment options once final report is available. 4. Chronic kidney disease stage III with worsening creatinine. Avoid nephrotoxic agents. Monitor clinically. 5. Diabetes. Holding oral medications. Insulin as per protocol. 6. History of breast cancer. Continue home medications, tamoxifen. 7. Dyslipidemia. Continue statin. 8. Hypertension. Continue current medications. 9. Deep vein thrombosis (DVT) prophylaxis. Heparin subcutaneously. DISPOSITION: placement VS, I&O, 24H, Fishbone Vital Signs/I&O Vital Signs Date Time Temp Pulse Resp B/P (MAP) Pulse Ox O2 Delivery O2 Flow Rate FiO2 07/15/18 06:00 98.1 109 20 121/80 (94) 90 Room Air 07/12/18 16:00 1.0 07/09/18 22:18 97 I&O- Last 24 Hours up to 6 AM 07/15/18 06:00 Intake Total 1200 ml Output Total 1050 ml Balance 150 ml Laboratory Data 24H LABS Laboratory Tests 2 07/14/18 11:25: Bedside Glucose (Misc Panel) 276H 07/14/18 16:29: Bedside Glucose (Misc Panel) 293H 07/14/18 20:39: Bedside Glucose (Misc Panel) 308H 07/15/18 06:09: Nucleated Red Blood Cells % (auto) 0.3H, Anion Gap 8, Glomerular Filtration Rate 40.3, Blood Urea Nitrogen 30H, Creatinine 1.33H, Sodium Level 142, Potassium Level 3.6, Chloride Level 103, Carbon Dioxide Level 31, Calcium Level 8.6L CBC/BMP Laboratory Tests 07/15/18 06:09 Red Blood Count 3.30 L, Mean Corpuscular Volume 97.3 H, Mean Corpuscular Hemoglobin 30.9, Mean Corpuscular Hemoglobin Concent 31.8 L, Red Cell Distribution Width 13.6, Calcium Level 8.6 L Microbiology Microbiology 07/10/18 Blood Culture - Preliminary, Resulted No Growth after 72 hours. All specime... 07/10/18 Blood Culture - Preliminary, Resulted No Growth after 72 hours. All specime... 07/12/18 Acid Fast Stain, Received Pending 07/12/18 Mycobacterial Culture, Received Pending 07/12/18 Fungal Smear, Received Pending 07/12/18 Fungal Culture, Received Pending 07/12/18 Gram Stain - Final, Complete 07/12/18 Anaerobic Culture - Final, Complete 07/12/18 Body Fluid Culture - Final, Complete 07/10/18 Respiratory Virus Panel (PCR) (BIN) - Final, Complete NESTOR ODELL MD Jul 15, 2018 08:15
[2018-07-15 14:00] VITALS: BP 140/61
--- NOTE | 2018-07-15 14:08 | REP ---
Chest two views HISTORY: Shortness of breath Comparison: 07/13/2018 There is elevation of the right hemidiaphragm. Parenchymal density is present in the right lower lobe consistent with atelectasis or infiltrate. There is blunting of the right costophrenic angle due to small pleural effusion unchanged compared to the previous study. . The left lung is clear. The cardiac silhouette is enlarged. The pulmonary vasculature is normal in appearance. The bony structure is intact. IMPRESSION: 1. Right lower lobe atelectasis or infiltrate. 2. Small right pleural effusion unchanged compared to the previous study. Electronically Signed by Lee Ferguson MD 07/15/2018 02:01 P
[2018-07-15] MEDS: LEVEMIR (INSULIN DETEMIR) 1 UNITS/0.01ML SC SCH (21:15)
[2018-07-15] MEDS: PRAVASTATIN 20 MG TAB PO SCH (21:16)
[2018-07-15 22:00] VITALS: BP 128/64
[2018-07-16] MEDS: HEPARIN SOD (PORCINE) 5000 UNITS/ML VIAL SC SCH ×3 (05:06→21:21)
[2018-07-16 06:00] VITALS: BP 151/72
[2018-07-16 06:10] LABS: HEMOGLOBIN 10.7 g/dl (12.0-15.5); MEAN CORPUSCULAR HEMOGLOBIN 31.8 pg (27.0-33.0); MEAN CORPUSCULAR HGB CONC 31.5 g/dl (32.0-36.5); MEAN CORPUSCULAR VOLUME 100.9 fl (80.0-96.0); PLATELET COUNT, AUTOMATED 268 10^3/uL (150-450); RED BLOOD COUNT 3.37 10^6/uL (4.00-5.40); WHITE BLOOD COUNT 7.1 10^3/uL (4.0-10.0)
[2018-07-16 06:28] LABS: CREATININE FOR GFR 1.5 MG/DL (0.55-1.30); GLOMERULAR FILTRATION RATE 35.1 (>32); POTASSIUM SERUM 3.4 MEQ/L (3.5-5.1)
--- NOTE | 2018-07-16 08:09 | IPNPDOC ---
Date Seen The patient was seen on 07/16/18. Progress Note SUBJECTIVE: Patient was seen and examined at the bedside. chart has been reviewed. Pt is unhappy about being moved to a shared room, and was unable to sleep all night because her roommate was yelling. Pt c/o HEND[place], no chest pain, pressure or tightness. no LE edema. no fever or chills. still w slight productive cough. Still awaiting final tumor markers. Pathology contacted. OBJECTIVE: VITALS: PLS SEE BELOW PHYSICAL EXAMINATION: GENERAL: The patient is alert, comfortable, in no acute distress. HEENT: Normocephalic, atraumatic. PULMONARY: Minimal rhonchi. No wheeze. CARDIAC: Regular. S1, S2. 2/6 systolic murmur. ABDOMEN: Soft, nontender. Positive bowel sounds. EXTREMITIES: Trace edema of bilateral lower extremities. This is an 87-year-old female patient with underlying medical history of hypertension, diabetes, breast cancer, status post bilateral mastectomy with chemotherapy and radiation, chronic kidney disease stage III, who presented with dyspnea on exertion, orthopnea and worsening cough. 1. Dyspnea, multifactorial. Congestive heart failure (CHF) with diastolic dysfunction, malignant pleural effusion from recurrent adenoca of breast. C-reactive protein has been negative. We will get respiratory panel. Given C-reactive protein has been negative, antibiotics have been discontinued. CT scan appreciated and showing hilar mass. Pulmonology signed off. Continue diuresis. Echocardiogram has been ordered. Serial cardiac enzymes have been negative. recheck CXR bnp, sputum cx. 2. Acute congestive heart failure (CHF) exacerbation with diastolic dys function, possible component of right heart failure with pulmonary artery hypertension. Diuresis. Telemetry. Obstructive sleep apnea protocol. Continue aspirin, beta blockers. Monitor blood pressure. Serials cardiac enzymes have been negative. Echocardiogram has been ordered. I and O, daily weight 3. Adenocarcinoma from recurrent breast cancer with Right hilar adenopathy and right small pleural effusion s/p thoracentesis. awaiting tumor markers. onc to meet w family for prognosis and treatment options once final report is available. 4. Chronic kidney disease stage III with worsening creatinine. Avoid nephrotoxic agents. Monitor clinically. 5. Diabetes. Holding oral medications. Insulin as per protocol. 6. History of breast cancer. Continue home medications, tamoxifen. 7. Dyslipidemia. Continue statin. 8. Hypertension. Continue current medications. 9. Deep vein thrombosis (DVT) prophylaxis. Heparin subcutaneously. DISPOSITION: placement VS, I&O, 24H, Fishbone Vital Signs/I&O Vital Signs Date Time Temp Pulse Resp B/P (MAP) Pulse Ox O2 Delivery O2 Flow Rate FiO2 07/16/18 06:00 97.4 102 22 151/72 (98) 96 Nasal Cannula 2.0 I&O- Last 24 Hours up to 6 AM 07/16/18 05:59 Intake Total 1170 ml Output Total 400 ml Balance 770 ml Laboratory Data 24H LABS Laboratory Tests 2 07/15/18 11:44: Bedside Glucose (Misc Panel) 283H 07/15/18 16:36: Bedside Glucose (Misc Panel) 232H 07/15/18 21:03: Bedside Glucose (Misc Panel) 234H 07/16/18 05:56: Nucleated Red Blood Cells % (auto) 0.0, Anion Gap 7L, Glomerular Filtration Rate 35.1, Blood Urea Nitrogen 34H, Creatinine 1.50H, Sodium Level 139, Potassium Level 3.4L, Chloride Level 102, Carbon Dioxide Level 30, Calcium Level 8.0L CBC/BMP Laboratory Tests 07/16/18 05:56 Red Blood Count 3.37 L, Mean Corpuscular Volume 100.9 H, Mean Corpuscular Hemoglobin 31.8, Mean Corpuscular Hemoglobin Concent 31.5 L, Red Cell Distribution Width 13.8, Calcium Level 8.0 L Microbiology Microbiology 07/10/18 Blood Culture - Final, Complete NO GROWTH AFTER 5 DAYS 07/10/18 Blood Culture - Final, Complete NO GROWTH AFTER 5 DAYS 07/12/18 Acid Fast Stain, Received Pending 07/12/18 Mycobacterial Culture, Received Pending 07/12/18 Fungal Smear, Received Pending 07/12/18 Fungal Culture, Received Pending 07/12/18 Gram Stain - Final, Complete 07/12/18 Anaerobic Culture - Final, Complete 07/12/18 Body Fluid Culture - Final, Complete 07/10/18 Respiratory Virus Panel (PCR) (BIN) - Final, Complete NESTOR ODELL MD Jul 16, 2018 08:09
[2018-07-16] MEDS: HumaLOG INSULIN (NovoLOG) PER UNIT SC SCH ×4 (08:25→21:00)
[2018-07-16] MEDS: FUROSEMIDE 40 MG TAB PO SCH ×2 (08:26→17:00)
[2018-07-16] MEDS: ACETAMINOPHEN TAB 650MG DOSE (2X325MG) PO SCH ×2 (08:26→21:00)
[2018-07-16] MEDS: TAMOXIFEN CITRATE 10 MG TAB PO SCH (08:26)
[2018-07-16] MEDS: ASCORBIC ACID 500 MG TAB PO SCH (08:27)
[2018-07-16] MEDS: METOPROLOL TART 25 MG TABLET PO SCH ×2 (08:27→21:19)
[2018-07-16] MEDS: MULTIVITAMINS/MINERALS THERAP 1 TAB PO SCH (08:27)
[2018-07-16] MEDS: ASPIRIN 81 MG ENTERIC TAB PO SCH (08:27)
[2018-07-16] MEDS: SODIUM CHLORIDE NASAL 0.65% SPRAY BTL (OCEAN) SCH ×3 (08:27→21:00)
[2018-07-16 14:00] VITALS: BP 134/75
[2018-07-16] MEDS ORDERED: ONDANSETRON 4MG/2ML VIAL (J2405) IV PRN (16:30)
[2018-07-16] MEDS ORDERED: ONDANSETRON 4 MG ORAL DISINTEGRATING TAB (Q0162 PER 1MG) PO PRN (17:30)
[2018-07-16 20:00] VITALS: BP 136/58
[2018-07-16] MEDS: PRAVASTATIN 20 MG TAB PO SCH (21:18)
[2018-07-16] MEDS: LEVEMIR (INSULIN DETEMIR) 1 UNITS/0.01ML SC SCH (21:20)
[2018-07-17] MEDS: HEPARIN SOD (PORCINE) 5000 UNITS/ML VIAL SC SCH ×3 (05:26→21:35)
[2018-07-17 06:00] VITALS: BP 164/72
[2018-07-17 06:10] LABS: HEMATOCRIT 32.2 % (36.0-47.0); HEMOGLOBIN 10.1 g/dl (12.0-15.5); MEAN CORPUSCULAR HEMOGLOBIN 30.8 pg (27.0-33.0); MEAN CORPUSCULAR HGB CONC 31.4 g/dl (32.0-36.5); MEAN CORPUSCULAR VOLUME 98.2 fl (80.0-96.0); PLATELET COUNT, AUTOMATED 265 10^3/uL (150-450); RED BLOOD COUNT 3.28 10^6/uL (4.00-5.40); WHITE BLOOD COUNT 7.6 10^3/uL (4.0-10.0)
[2018-07-17 06:23] LABS: CALCIUM LEVEL 7.9 MG/DL (8.8-10.2); CREATININE FOR GFR 1.51 MG/DL (0.55-1.30); GLOMERULAR FILTRATION RATE 34.8 (>32)
[2018-07-17] MEDS ORDERED: MOXIFLOXACIN 400 MG TAB PO ONE (08:45)
[2018-07-17] MEDS: ASPIRIN 81 MG ENTERIC TAB PO SCH (08:46)
[2018-07-17] MEDS: ASCORBIC ACID 500 MG TAB PO SCH (08:46)
[2018-07-17] MEDS: TAMOXIFEN CITRATE 10 MG TAB PO SCH (08:46)
[2018-07-17] MEDS: MULTIVITAMINS/MINERALS THERAP 1 TAB PO SCH (08:46)
[2018-07-17] MEDS: HumaLOG INSULIN (NovoLOG) PER UNIT SC SCH ×4 (08:46→21:00)
[2018-07-17] MEDS: ACETAMINOPHEN TAB 650MG DOSE (2X325MG) PO SCH ×2 (08:46→21:28)
[2018-07-17] MEDS: LACTOBACILLUS ACIDOPHILUS CAP (BACID) PO SCH ×2 (08:46→18:01)
[2018-07-17] MEDS: METOPROLOL TART 25 MG TABLET PO SCH ×3 (08:47→18:01)
[2018-07-17] MEDS: SODIUM CHLORIDE NASAL 0.65% SPRAY BTL (OCEAN) SCH ×3 (08:47→21:36)
--- NOTE | 2018-07-17 08:59 | REP ---
Clinical: Shortness of breath. Comparison: 07/15/2018. Findings: Bilateral perihilar and lower lobe atelectasis/infiltrates (right greater than left) with moderate right pleural effusion noted. No pneumothorax. Mediastinum and cardiac silhouette stable. Skeletal structures intact. Impression: Bibasilar atelectasis/infiltrates (right greater than left) and right pleural effusion. Electronically Signed by Efraín Pompa MD 07/17/2018 08:50 A
--- NOTE | 2018-07-17 10:01 | IPNPDOC ---
Date Seen The patient was seen on 07/17/18. Progress Note SUBJECTIVE: Patient was seen and examined at the bedside. chart has been reviewed. 07/15cxr: rll atelectasis vs infiltrate. rt pleural effusion unchanged. on incentive spirometry. added avelox 07/17/18 and sputum cx pending. Per pathologist on 07/16/18, cell block sent for [id number] receptors. OBJECTIVE: VITALS: PLS SEE BELOW PHYSICAL EXAMINATION: GENERAL: The patient is alert, comfortable, in no acute distress. HEENT: Normocephalic, atraumatic. PULMONARY: Minimal rhonchi. No wheeze. CARDIAC: Regular. S1, S2. 2/6 systolic murmur. ABDOMEN: Soft, nontender. Positive bowel sounds. EXTREMITIES: Trace edema of bilateral lower extremities. This is an 87-year-old female patient with underlying medical history of hypertension, diabetes, breast cancer, status post bilateral mastectomy with chemotherapy and radiation, chronic kidney disease stage III, who presented with dyspnea on exertion, orthopnea and worsening cough. Dyspnea, multifactorial. Congestive heart failure (CHF) with diastolic dysfunction, malignant pleural effusion from recurrent adenoca of breast. C-reactive protein has been negative. We will get respiratory panel. Given C-reactive protein has been negative, antibiotics have been discontinued. CT scan appreciated and showing hilar mass. Pulmonology signed off. Continue diuresis. Echocardiogram has been ordered. Serial cardiac enzymes have been negative. recheck CXR bnp, sputum cx. Acute congestive heart failure (CHF) exacerbation with diastolic dysfunction, possible component of right heart failure with pulmonary artery hypertension. Diuresis. Telemetry. Obstructive sleep apnea protocol. Continue aspirin, beta blockers. Monitor blood pressure. Serials cardiac enzymes have been negative. Echocardiogram has been ordered. I and O, daily weight Adenocarcinoma from recurrent breast cancer with Right hilar adenopathy and right small pleural effusion s/p thoracentesis. awaiting tumor markers. onc to meet w family for prognosis and treatment options once final report is available. sinus tachycardia on metoprolol q6hrs with holding parameters. vq scan to rule out pe in light of metastatic breast ca. RLL atelectasis vs infiltrate due to c/o cough productive of white thick sputum,sputum cx ordered 07/17/18 avelox 07/17/18 x 7days. incentive spirometry Chronic kidney disease stage III with worsening creatinine. Avoid nephrotoxic agents. Monitor clinically. Diabetes. Holding oral medications. Insulin as per protocol. History of breast cancer. Continue home medications, tamoxifen. Dyslipidemia. Continue statin. Hypertension. Continue current medications. Deep vein thrombosis (DVT) prophylaxis. Heparin subcutaneously. DISPOSITION: placement VS, I&O, 24H, Fishbone Vital Signs/I&O Vital Signs Date Time Temp Pulse Resp B/P (MAP) Pulse Ox O2 Delivery O2 Flow Rate FiO2 07/17/18 06:00 98.7 101 20 164/72 (102) 92 Nasal Cannula 07/17/18 04:46 1.0 I&O- Last 24 Hours up to 6 AM 07/17/18 06:00 Intake Total 1400 ml Output Total 75 ml Balance 1325 ml Laboratory Data 24H LABS Laboratory Tests 2 07/16/18 12:01: Bedside Glucose (Misc Panel) 203H 07/16/18 16:53: Bedside Glucose (Misc Panel) 134H 07/16/18 20:40: Bedside Glucose (Misc Panel) 176H 07/17/18 05:46: Nucleated Red Blood Cells % (auto) 0.3H, Anion Gap 8, Glomerular Filtration Rate 34.8, Blood Urea Nitrogen 39H, Creatinine 1.51H, Sodium Level 138, Potassium Level 3.0L, Chloride Level 103, Carbon Dioxide Level 27, Calcium Level 7.9L CBC/BMP Laboratory Tests 07/17/18 05:46 Red Blood Count 3.28 L, Mean Corpuscular Volume 98.2 H, Mean Corpuscular Hemoglobin 30.8, Mean Corpuscular Hemoglobin Concent 31.4 L, Red Cell Distribution Width 13.7, Calcium Level 7.9 L Microbiology Microbiology 07/10/18 Blood Culture - Final, Complete NO GROWTH AFTER 5 DAYS 07/10/18 Blood Culture - Final, Complete NO GROWTH AFTER 5 DAYS 07/12/18 Acid Fast Stain, Received Pending 07/12/18 Mycobacterial Culture, Received Pending 07/12/18 Fungal Smear, Received Pending 07/12/18 Fungal Culture, Received Pending 07/12/18 Gram Stain - Final, Complete 07/12/18 Anaerobic Culture - Final, Complete 07/12/18 Body Fluid Culture - Final, Complete 07/17/18 Gastrointestinal Tract Panel (PCR) - Final, Complete Rotavirus A 07/10/18 Respiratory Virus Panel (PCR) (BIN) - Final, Complete CASS,NESTOR C. MD Jul 17, 2018 08:21
[2018-07-17 14:00] VITALS: BP 126/58
--- NOTE | 2018-07-17 15:37 | ECGEPIP ---
Stationary ECG Study [facility] Test Date: 2018-07-17 Pat Name: LEONA CHENEY Department: Room: [place] [address] Gender: F Heel Trimmer: KRISTOPHER : [id number] Requested By: NESTOR Rinaldi Order Number: [id number] Reading MD: Gunner Antoine Measurements Intervals Williams Rate: 108 P: 24 GA: 125 QRS: 269 QRSD: 129 T: 32 QT: 355 QTc: 477 Interpretive Statements Sinus tachycardia Williams indeterminate Right bundle branch block No significant change when compared to prior tracing of 07/11/2018 Electronically Signed On 07-17-2018 15:37:06 EST by Gunner Antoine
[2018-07-17] MEDS: PRAVASTATIN 20 MG TAB PO SCH (21:28)
[2018-07-17] MEDS: LEVEMIR (INSULIN DETEMIR) 1 UNITS/0.01ML SC SCH (21:34)
[2018-07-17 22:00] VITALS: BP 137/49
[2018-07-18] MEDS: METOPROLOL TART 25 MG TABLET PO SCH ×4 (01:23→18:23)
[2018-07-18 06:00] VITALS: BP 132/63
[2018-07-18] MEDS: MOXIFLOXACIN 400 MG TAB PO SCH (06:15)
[2018-07-18] MEDS: HEPARIN SOD (PORCINE) 5000 UNITS/ML VIAL SC SCH ×3 (06:15→21:10)
[2018-07-18] MEDS: HumaLOG INSULIN (NovoLOG) PER UNIT SC SCH ×4 (08:39→21:11)
[2018-07-18] MEDS: TAMOXIFEN CITRATE 10 MG TAB PO SCH (08:39)
[2018-07-18] MEDS: LACTOBACILLUS ACIDOPHILUS CAP (BACID) PO SCH ×2 (08:39→18:23)
[2018-07-18] MEDS: MULTIVITAMINS/MINERALS THERAP 1 TAB PO SCH (08:40)
[2018-07-18] MEDS: SODIUM CHLORIDE NASAL 0.65% SPRAY BTL (OCEAN) SCH ×3 (08:40→21:11)
[2018-07-18] MEDS: ACETAMINOPHEN TAB 650MG DOSE (2X325MG) PO SCH ×2 (08:40→21:10)
[2018-07-18] MEDS: ASPIRIN 81 MG ENTERIC TAB PO SCH (08:40)
[2018-07-18] MEDS: ASCORBIC ACID 500 MG TAB PO SCH (08:40)
[2018-07-18 14:00] VITALS: BP 136/58
--- NOTE | 2018-07-18 16:09 | IPNPDOC ---
Date Seen The patient was seen on 07/18/18. Progress Note SUBJECTIVE: Patient was seen and examined at the bedside. chart has been reviewed. Pt's nephew driving down from [place] on Thursday, and niece wants to have a meeting with Dr. Gomez once all tumor markers available to discuss treatment options. NO recurrent diarrhea. GI panel: rotavirus. tolerating diet without nausea, vomiting, or abd pain. 07/15cxr: rll atelectasis vs infiltrate. rt pleural effusion unchanged. on incentive spirometry. added avelox 07/17/18 and sputum cx ordered, but patient says cough has been dry. ER positive on cell block with Breast as origin Per pathologist on 07/16/18, cell block sent for [id number] receptors, [place] receptor ordered 07/16/18. OBJECTIVE: VITALS: PLS SEE BELOW PHYSICAL EXAMINATION: GENERAL: The patient is alert, comfortable, in no acute distress. HEENT: Normocephalic, atraumatic. PULMONARY: Minimal rhonchi. No wheeze. CARDIAC: Regular. S1, S2. 2/6 systolic murmur. ABDOMEN: Soft, nontender. Positive bowel sounds. EXTREMITIES: Trace edema of bilateral lower extremities. This is an 87-year-old female patient with underlying medical history of hypertension, diabetes, breast cancer, status post bilateral mastectomy with chemotherapy and radiation, chronic kidney disease stage III, who presented with dyspnea on exertion, orthopnea and worsening cough. Dyspnea, multifactorial. Congestive heart failure (CHF) with diastolic dysfunction, malignant pleural effusion from recurrent adenoca of breast. C-reactive protein has been negative. Negaive respiratory panel. CT scan appreciated and showing hilar mass. Pulmonology signed off. stopped lasix diuresis due to diarrhea with rotavirus which has improve. Echocardiogram reviewed. Serial cardiac enzymes have been negative. on avelox 07/17/18 due to RLL infiltrate. Acute congestive heart failure (CHF) exacerbation with diastolic dysfunction, possible component of right heart failure with pulmonary artery hypertension. Diuresis. Telemetry. Obstructive sleep apnea protocol. Continue aspirin, beta blockers. Monitor blood pressure. Serials cardiac enzymes have been negative. Echocardiogram has been ordered. I and O, daily weight Adenocarcinoma from recurrent breast cancer ER positive with Right hilar adenopathy and right small pleural effusion s/p thoracentesis. awaiting tumor markers. onc to meet w family for prognosis and treatment options once final report is available. sinus tachycardia on metoprolol q6hrs with holding parameters. vq scan to rule out pe in light of metastatic breast ca. RLL atelectasis vs infiltrate due to c/o cough productive of white thick sputum,sputum cx ordered 07/17/18 avelox 07/17/18 x 7days. incentive spirometry Rotavirus Diarrhea, resolving diuresis held due to ongoing volume loss. monitoring for dehydration and electrolyte derangements. Chronic kidney disease stage III at baseline creatinine. Avoid nephrotoxic agents. Monitor clinically. Diabetes. Holding oral medications. Insulin as per protocol. Dyslipidemia. Continue statin. Hypertension. Continue current medications. Deep vein thrombosis (DVT) prophylaxis. Heparin subcutaneously. DISPOSITION: placementawaiting tumor markers. onc to meet w family for prognosis and treatment options once final report is available. . VS, I&O, 24H, Fishbone Vital Signs/I&O Vital Signs Date Time Temp Pulse Resp B/P (MAP) Pulse Ox O2 Delivery O2 Flow Rate FiO2 07/18/18 14:00 97.6 95 18 136/58 (84) 97 Nasal Cannula 1.0 I&O- Last 24 Hours up to 6 AM 07/18/18 06:00 Intake Total 1450 ml Output Total 300 ml Balance 1150 ml Laboratory Data 24H LABS Laboratory Tests 2 07/17/18 16:26: Bedside Glucose (Misc Panel) 155H 07/17/18 21:08: Bedside Glucose (Misc Panel) 219H 07/18/18 06:46: Bedside Glucose (Misc Panel) 118H 07/18/18 11:50: Bedside Glucose (Misc Panel) 178H Microbiology Microbiology 07/10/18 Blood Culture - Final, Complete NO GROWTH AFTER 5 DAYS 07/10/18 Blood Culture - Final, Complete NO GROWTH AFTER 5 DAYS 07/12/18 Acid Fast Stain, Received Pending 07/12/18 Mycobacterial Culture, Received Pending 07/12/18 Fungal Smear, Received Pending 07/12/18 Fungal Culture, Received Pending 07/12/18 Gram Stain - Final, Complete 07/12/18 Anaerobic Culture - Final, Complete 07/12/18 Body Fluid Culture - Final, Complete 07/17/18 Gastrointestinal Tract Panel (PCR) - Final, Complete Rotavirus A 07/10/18 Respiratory Virus Panel (PCR) (BIN) - Final, Complete NESTOR ODELL MD Jul 18, 2018 16:09
[2018-07-18] MEDS: PRAVASTATIN 20 MG TAB PO SCH (21:10)
[2018-07-18] MEDS: LEVEMIR (INSULIN DETEMIR) 1 UNITS/0.01ML SC SCH (21:11)
[2018-07-18 22:00] VITALS: BP 121/56
[2018-07-19] MEDS: METOPROLOL TART 25 MG TABLET PO SCH ×4 (00:40→18:05)
[2018-07-19] MEDS: HEPARIN SOD (PORCINE) 5000 UNITS/ML VIAL SC SCH ×3 (05:42→21:18)
[2018-07-19] MEDS: MOXIFLOXACIN 400 MG TAB PO SCH (05:43)
[2018-07-19 05:53] VITALS: BP 132/56
[2018-07-19 06:58] LABS: CREATININE FOR GFR 1.32 MG/DL (0.55-1.30); GLOMERULAR FILTRATION RATE 40.6 (>32); POTASSIUM SERUM 3.1 MEQ/L (3.5-5.1)
[2018-07-19] MEDS: HumaLOG INSULIN (NovoLOG) PER UNIT SC SCH ×4 (07:30→21:16)
[2018-07-19 08:00] VITALS: BP 131/60
[2018-07-19] MEDS ORDERED: POTASSIUM CHLORIDE 10 MEQ SR TABLET PO ONE (08:00)
--- NOTE | 2018-07-19 09:08 | IPNPDOC ---
Date Seen The patient was seen on 07/19/18. Progress Note SUBJECTIVE: No other issues overnight. per RN, no new complaints. Patient was seen and examined at the bedside. chart has been reviewed. Pt's nephew driving down from [place] on Thursday, and niece wants to have a meeting with Dr. Gomez once all tumor markers available to discuss treatment options. NO recurrent diarrhea. GI panel: rotavirus. tolerating diet without nausea, vomiting, or abd pain. 07/15cxr: rll atelectasis vs infiltrate. rt pleural effusion unchanged. on incentive spirometry. added avelox 07/17/18 and sputum cx ordered, but patient says cough has been dry. ER positive on cell block with Breast as origin Per pathologist on 07/16/18, cell block sent for [id number] receptors, HI receptor ordered 07/16/18. OBJECTIVE: VITALS: PLS SEE BELOW PHYSICAL EXAMINATION: GENERAL: The patient is alert, comfortable, in no acute distress. HEENT: Normocephalic, atraumatic. PULMONARY: Minimal rhonchi. No wheeze. CARDIAC: Regular. S1, S2. 2/6 systolic murmur. ABDOMEN: Soft, nontender. Positive bowel sounds. EXTREMITIES: Trace edema of bilateral lower extremities. This is an 87-year-old female patient with underlying medical history of hypertension, diabetes, breast cancer, status post bilateral mastectomy with chemotherapy and radiation, chronic kidney disease stage III, who presented with dyspnea on exertion, orthopnea and worsening cough. Dyspnea, multifactorial. Congestive heart failure (CHF) with diastolic dysfunction, malignant pleural effusion from recurrent adenoca of breast. C-reactive protein has been negative. Negaive respiratory panel. CT scan appreciated and showing hilar mass. Pulmonology signed off. stopped lasix diuresis due to diarrhea with rotavirus which has improve. Echocardiogram reviewed. Serial cardiac enzymes have been negative. on avelox 07/17/18 due to RLL infiltrate. Acute congestive heart failure (CHF) exacerbation with diastolic dysfunction, possible component of right heart failure with pulmonary artery hypertension. Diuresis. Telemetry. Obstructive sleep apnea protocol. Continue aspirin, beta blockers. Monitor blood pressure. Serials cardiac enzymes have been negative. Echocardiogram has been ordered. I and O, daily weight Adenocarcinoma from recurrent breast cancer ER positive with Right hilar adenopathy and right small pleural effusion s/p thoracentesis. awaiting tumor markers. onc to meet w family for prognosis and treatment options once final report is available. sinus tachycardia on metoprolol q6hrs with holding parameters. vq scan to rule out pe in light of metastatic breast ca. RLL atelectasis vs infiltrate due to c/o cough productive of white thick sputum,sputum cx ordered 07/17/18 avelox 07/17/18 x 7days. incentive spirometry Rotavirus Diarrhea, resolving diuresis held due to ongoing volume loss. monitoring for dehydration and electrolyte derangements. Chronic kidney disease stage III at baseline creatinine. Avoid nephrotoxic agents. Monitor clinically. Diabetes. Holding oral medications. Insulin as per protocol. Dyslipidemia. Continue statin. Hypertension. Continue current medications. Deep vein thrombosis (DVT) prophylaxis. Heparin subcutaneously. DISPOSITION: placementawaiting tumor markers. onc to meet w family for prognosis and treatment options once final report is available. . VS, I&O, 24H, Fishbone Vital Signs/I&O Vital Signs Date Time Temp Pulse Resp B/P (MAP) Pulse Ox O2 Delivery O2 Flow Rate FiO2 07/19/18 05:53 96.9 81 22 132/56 (81) 96 Nasal Cannula 1.0 I&O- Last 24 Hours up to 6 AM 07/19/18 06:00 Intake Total 1560 ml Output Total 200 ml Balance 1360 ml Laboratory Data 24H LABS Laboratory Tests 2 07/18/18 11:50: Bedside Glucose (Misc Panel) 178H 07/18/18 16:40: Bedside Glucose (Misc Panel) 196H 07/18/18 20:49: Bedside Glucose (Misc Panel) 269H 07/19/18 06:20: Anion Gap 4L, Glomerular Filtration Rate 40.6, Blood Urea Nitrogen 44H, Creatinine 1.32H, Sodium Level 137, Potassium Level 3.1L, Chloride Level 104, Carbon Dioxide Level 29, Calcium Level 8.0L CBC/BMP Laboratory Tests 07/19/18 06:20 Calcium Level 8.0 L Microbiology Microbiology 07/10/18 Blood Culture - Final, Complete NO GROWTH AFTER 5 DAYS 07/10/18 Blood Culture - Final, Complete NO GROWTH AFTER 5 DAYS 07/12/18 Acid Fast Stain, Received Pending 07/12/18 Mycobacterial Culture, Received Pending 07/12/18 Fungal Smear, Received Pending 07/12/18 Fungal Culture, Received Pending 07/12/18 Gram Stain - Final, Complete 07/12/18 Anaerobic Culture - Final, Complete 07/12/18 Body Fluid Culture - Final, Complete 07/17/18 Gastrointestinal Tract Panel (PCR) - Final, Complete Rotavirus A 07/10/18 Respiratory Virus Panel (PCR) (BIN) - Final, Complete NESTOR ODELL MD Jul 19, 2018 09:08
[2018-07-19] MEDS: LACTOBACILLUS ACIDOPHILUS CAP (BACID) PO SCH ×2 (09:48→18:02)
[2018-07-19] MEDS: TAMOXIFEN CITRATE 10 MG TAB PO SCH (09:49)
[2018-07-19] MEDS: ACETAMINOPHEN TAB 650MG DOSE (2X325MG) PO SCH ×2 (09:49→21:16)
[2018-07-19] MEDS: ASPIRIN 81 MG ENTERIC TAB PO SCH (09:49)
[2018-07-19] MEDS: MULTIVITAMINS/MINERALS THERAP 1 TAB PO SCH (09:49)
[2018-07-19] MEDS: SODIUM CHLORIDE NASAL 0.65% SPRAY BTL (OCEAN) SCH ×3 (09:50→21:18)
[2018-07-19] MEDS: ASCORBIC ACID 500 MG TAB PO SCH (09:50)
[2018-07-19 14:00] VITALS: BP 122/56
[2018-07-19] MEDS: PRAVASTATIN 20 MG TAB PO SCH (21:15)
[2018-07-19] MEDS: LEVEMIR (INSULIN DETEMIR) 1 UNITS/0.01ML SC SCH (21:17)
[2018-07-19 22:00] VITALS: BP 132/59
[2018-07-20] MEDS: METOPROLOL TART 25 MG TABLET PO SCH ×5 (00:16→23:23)
[2018-07-20] MEDS: MOXIFLOXACIN 400 MG TAB PO SCH (05:23)
[2018-07-20] MEDS: HEPARIN SOD (PORCINE) 5000 UNITS/ML VIAL SC SCH ×3 (05:24→21:47)
[2018-07-20 06:00] VITALS: BP 131/81
[2018-07-20] MEDS: SODIUM CHLORIDE NASAL 0.65% SPRAY BTL (OCEAN) SCH ×3 (09:00→21:47)
[2018-07-20] MEDS: ASPIRIN 81 MG ENTERIC TAB PO SCH (09:04)
[2018-07-20] MEDS: ACETAMINOPHEN TAB 650MG DOSE (2X325MG) PO SCH ×2 (09:04→21:46)
[2018-07-20] MEDS: HumaLOG INSULIN (NovoLOG) PER UNIT SC SCH ×4 (09:04→21:46)
[2018-07-20] MEDS: MULTIVITAMINS/MINERALS THERAP 1 TAB PO SCH (09:05)
[2018-07-20] MEDS: LACTOBACILLUS ACIDOPHILUS CAP (BACID) PO SCH ×2 (09:05→18:14)
[2018-07-20] MEDS: ASCORBIC ACID 500 MG TAB PO SCH (09:05)
[2018-07-20] MEDS: TAMOXIFEN CITRATE 10 MG TAB PO SCH (09:05)
--- NOTE | 2018-07-20 11:54 | IPN ---
DATE: 07/20/2018 Iman [facility]. I have got a call in to Dr. Gomez, her oncologist. She had a family meeting with her yesterday after her tumor markers came back to decide whether further chemotherapy or palliative care is going to be pursued. Overall, the patient feels well. Denies any shortness of breath. PHYSICAL EXAMINATION: Afebrile. Vital signs stable. No jugular venous distention (JVD). Lungs clear. Heart regular rate and rhythm, 2/6 systolic ejection murmur. Abdomen soft, nontender. No masses. No peripheral edema. LABS: No labs ordered for today. IMPRESSION: I have a call in to Dr. Gomez. We are waiting for her input with direction from the family members. 1. Metastatic breast cancer with malignant pleural effusion. Direction per oncology. 2. Right pleural effusion. She is on Avelox. I do not think she needs this. There is no sign of active pulmonary infection. Will discontinue the antibiotic. She has had some diarrhea probably from the antibiotic as well as rotavirus which was isolated on her GI sample. 3. Chronic kidney disease. Renal functions need to be monitored. She has not had any recent lab work. I will order some for tomorrow. 4. Diabetes on sliding scale. Diabetic control is adequate. 5. Hyperlipidemia. She is on a statin, probably could be discontinued if decision is made to go towards comfort measures or palliative care.
[2018-07-20 14:00] VITALS: BP 134/62
[2018-07-20] MEDS: PRAVASTATIN 20 MG TAB PO SCH (21:45)
[2018-07-20 22:00] VITALS: BP 132/62
[2018-07-20] MEDS: LEVEMIR (INSULIN DETEMIR) 1 UNITS/0.01ML SC SCH (23:23)
[2018-07-21] MEDS: METOPROLOL TART 25 MG TABLET PO SCH ×3 (05:54→18:06)
[2018-07-21] MEDS: HEPARIN SOD (PORCINE) 5000 UNITS/ML VIAL SC SCH ×3 (05:54→21:07)
[2018-07-21 06:00] VITALS: BP 138/61
[2018-07-21 06:25] LABS: HEMATOCRIT 32.8 % (36.0-47.0); HEMOGLOBIN 10.2 g/dl (12.0-15.5); MEAN CORPUSCULAR HEMOGLOBIN 31.3 pg (27.0-33.0); MEAN CORPUSCULAR HGB CONC 31.1 g/dl (32.0-36.5); MEAN CORPUSCULAR VOLUME 100.6 fl (80.0-96.0); PLATELET COUNT, AUTOMATED 327 10^3/uL (150-450); RED BLOOD COUNT 3.26 10^6/uL (4.00-5.40); WHITE BLOOD COUNT 8.3 10^3/uL (4.0-10.0)
[2018-07-21 06:50] LABS: CALCIUM LEVEL 8.4 MG/DL (8.8-10.2); CREATININE FOR GFR 1.2 MG/DL (0.55-1.30); GLOMERULAR FILTRATION RATE 45.3 (>32); POTASSIUM SERUM 4.4 MEQ/L (3.5-5.1)
[2018-07-21] MEDS: ASCORBIC ACID 500 MG TAB PO SCH (09:07)
[2018-07-21] MEDS: ASPIRIN 81 MG ENTERIC TAB PO SCH (09:07)
[2018-07-21] MEDS: TAMOXIFEN CITRATE 10 MG TAB PO SCH (09:07)
[2018-07-21] MEDS: ACETAMINOPHEN TAB 650MG DOSE (2X325MG) PO SCH ×2 (09:07→21:05)
[2018-07-21] MEDS: LACTOBACILLUS ACIDOPHILUS CAP (BACID) PO SCH ×2 (09:07→18:06)
[2018-07-21] MEDS: MULTIVITAMINS/MINERALS THERAP 1 TAB PO SCH (09:07)
[2018-07-21] MEDS: HumaLOG INSULIN (NovoLOG) PER UNIT SC SCH ×4 (09:08→21:05)
[2018-07-21] MEDS: SODIUM CHLORIDE NASAL 0.65% SPRAY BTL (OCEAN) SCH ×3 (09:08→21:06)
--- NOTE | 2018-07-21 11:08 | CR ---
HEMATOLOGY ONCOLOGY CONSULTATION NOTE DATE OF SERVICE: 07/20/2018 This is an inpatient consultation. The patient was seen [address] [place] [address]. HISTORY OF PRESENT ILLNESS: This is a very pleasant elderly female who has a known history of carcinoma of the breast. The patient was originally diagnosed back in October of 2001 with a T1b infiltrating carcinoma that was 0.8 cm in size ER positive, MA negative, and HER2/carlito negative. The patient had no lymph nodes. She was a [id number]. She had been started on tamoxifen therapy and had developed an abnormal Pap smear. At that time was been switched over to letrozole. She was on letrozole therapy from October of 2005 to August of 2006 and had developed arthralgias as well as musculoskeletal pain. She changed over to another AI which was Arimidex and was on that from August of 2006 to May 2008. The patient then developed a new right breast primary in April of 2010. At this time she had a T2N1M0 ER positive, MA positive, HER2/carlito negative carcinoma. At that time the patient underwent adjuvant Taxol and cyclophosphamide therapy which she had completed in July of 2010, her radiation therapy was completed in September. She was then restarted back on anastrozole in July 2010. 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 That was the first time that the patient had reverted to an ER negative MA negative status. She then developed a recurrence in the right breast in the right axillary lymph node in 2004, underwent a right axillary dissection and recurrent breast cancer excision of the right axilla in June 2015. The pathology showed infiltrating ductal carcinoma. This tumor was 1.8 cm in size. She was started on adjuvant fulvestrant in July of 2015. The patient continued with yet another recurrence and underwent an excisional biopsy in April of 2016 for breast cancer recurrence grade 2 followed by a right simple mastectomy on 06/04/2016. The pathology had shown recurrent infiltrating ductal carcinoma 1.5 cm in largest dimension with a small focus of infiltrating carcinoma. She was started back on tamoxifen therapy in April of 2016. The patient's course has been a series of recurrent right and left breast carcinomas. She has now been placed into the hospital and at this time she has developed a new mediastinal mass. Decided on her last hospital admission that any invasive procedures in a patient who had a performance status of 3 or 4 on the ECOG scale was not in the past condition nor would it warrant us with her rather extensive history. She had also complications with CHF, shortness of breath, etc. Considerations were placed the patient on Faslodex and IBRANCE as the next treatment options. The patient is not a candidate for chemotherapy. The patient's medications include acetaminophen 325 mg by mouth twice a day, amlodipine 10 mg by mouth daily, ascorbic acid 500 mg by mouth daily, aspirin 81 mg by mouth daily, benazepril 20 mg by mouth daily, calcium carbonate 600 mg by mouth twice a day, glipizide 2 tablets by mouth daily, insulin 30 units subcu at bedtime, pravastatin 40 mg at bedtime and tamoxifen citrate 20 mg by mouth daily, torsemide 10 mg, she takes 30 mg by mouth twice a day. ALLERGIES: BRIMONIDINE and DORZOLAMIDE. On her review of systems she is generally tired, fatigued, weak, lethargic. She is awaiting consideration for possible placement in a rehab facility. She has shortness of breath with exertion and transfer from the seat to the bed. Currently she has no palpitations. Denies any history of any nausea, vomiting, diarrhea, or constipation. She denies numbness and tingling in the fingertips and toes and she has no problems with any arthralgias or myalgias at this particular point. On her chest x-ray that was taken on 07/17/2018 she shows bibasilar atelectasis, infiltrates right greater than left and right pleural effusion. On her chest biopsy she has had an improved right pleural effusion. No pneumothorax. She had undergone an ultrasonic guided right thoracentesis. There was no evidence of any pneumothorax or any other complication. On her renal ultrasound the patient had shown a limited examination, she had shown a right kidney 9.4 x 4 x 3.9 cm, the left kidney was 9.8 x 3.4 x 4.4 cm and there was an upper pole cyst of 1.4 x 1.3 cm noted. There was no sign of evidence of any hydronephrosis or hydroureter or any solid mass. On her laboratories her WBC count was 8.3, hemoglobin of 10.2, hematocrit of 32.8, MCV of 100.6, RDW of 13.9, platelet counts of 327,000, neutrophils were 75%, lymphocytes were 14%, monocytes were 8. Chemistries showed a sodium of 138, potassium 4.4, chloride of 105, CO2 28, BUN of 33, creatinine of 1.20, glucose of 28, calcium of 8.4, serum iron of 74, TIBC of 372, transferrin saturation of 19.9, ferritin of 79, total bilirubin 0.3, total bilirubin 0.1, AST of 9, ALT is -4, alkaline phosphatase of 47, LDH is 149. On the patient's pathology specimen from her cell block from a 07/13/2018 the patient shows positive for metastatic adenocarcinoma consistent with the breast primary. The tumor cells are strongly positive for ER and negative for a TTF1 supporting the breast origin diagnosis. ASSESSMENT: At this time is stage IV recurrent metastatic carcinoma of the breast with both mixed components of ER positive, MA positive, as well as ER negative, MA negative disease states. The patient has been through several lines of hormonal therapy at this point and has been reverted back to medications that were given in the first line. At this point the only other option for someone at this stage would be to continue either the Faslodex or and add in IBRANCE medication or to go on palliative care medicine. The burden of coming back and forth on a monthly basis for an intramuscular injection may even be too much for the patient. I will be having discussions with the family regarding my recommendations for her treatment and discuss options with them as well. As stated the patient's performance status is a 3 to 4 on the ECOG scale and she is now at a point where she is going to be requiring assistance in all of her activities of daily living. The risk of Ibrance is neutropenia Resetting our goals for palliation and possible consideration for hospice should be considered. I had a discussion with the niece regarding her condition , her mulitple recurrences and the burden of therapy. I have recommended no further chemo and palliative and or hopsice care at this point in her disease. Symptom management and if needed , sclerosing therapy for recurrent pleural effusion only.
--- NOTE | 2018-07-21 13:41 | IPN ---
DATE: 07/21/2018 Iman is [facility]. She was seen yesterday by Dr. Gomez her oncologist. She notes she has stage 4 recurrent metastatic carcinoma of the breast with both mixed components of ER positive, PA positive as well as ER negative PA negative tumor being preset. She plans for a discussion with the family. Note the patient is status is a 3-4 on the ECOG scale. Requires assistance for activity of daily living. Mentioned considering palliative care. I stopped the Avelox as there has been no cough, sputum production or fever. Her lab work today shows her renal functions back to it baseline. PHYSICAL EXAM: Afebrile. Vital signs are stable. Lungs. Clear. Heart is regular. Abdomen soft and nontender. There is no peripheral edema. LABS: Potassium 44, creatinine 1.2, hemoglobin 10.2 which is stable. IMPRESSION: Metastatic breast cancer and pleural effusion. Appreciate Dr. Gomez's input. At this point, we are waiting for further plan from them before we make discharge plans. Palliative care is being considered and we would consult Hospice. I have asked patient family services to get involved as far as possible placement options.
[2018-07-21 14:00] VITALS: BP 133/60
[2018-07-21] MEDS: PRAVASTATIN 20 MG TAB PO SCH (21:04)
[2018-07-21] MEDS: LEVEMIR (INSULIN DETEMIR) 1 UNITS/0.01ML SC SCH (21:05)
[2018-07-21 22:00] VITALS: BP 132/67
[2018-07-22] MEDS: METOPROLOL TART 25 MG TABLET PO SCH ×4 (00:08→17:43)
[2018-07-22] MEDS: HEPARIN SOD (PORCINE) 5000 UNITS/ML VIAL SC SCH ×3 (05:48→21:47)
[2018-07-22 06:00] VITALS: BP 145/63
[2018-07-22] MEDS: SODIUM CHLORIDE NASAL 0.65% SPRAY BTL (OCEAN) SCH ×3 (09:00→21:47)
[2018-07-22] MEDS: MULTIVITAMINS/MINERALS THERAP 1 TAB PO SCH (10:06)
[2018-07-22] MEDS: ASPIRIN 81 MG ENTERIC TAB PO SCH (10:06)
[2018-07-22] MEDS: ASCORBIC ACID 500 MG TAB PO SCH (10:07)
[2018-07-22] MEDS: TAMOXIFEN CITRATE 10 MG TAB PO SCH (10:07)
[2018-07-22] MEDS: HumaLOG INSULIN (NovoLOG) PER UNIT SC SCH ×4 (10:07→21:46)
[2018-07-22] MEDS: ACETAMINOPHEN TAB 650MG DOSE (2X325MG) PO SCH ×2 (10:09→21:46)
[2018-07-22] MEDS: LACTOBACILLUS ACIDOPHILUS CAP (BACID) PO SCH ×2 (10:09→17:42)
--- NOTE | 2018-07-22 11:24 | IPN ---
DATE: 07/22/2018 I met with Iman as well as her nephew, who was in the room. We had a discussion to summarize where we are at this point. I previously discussed the case with Dr. Celena Gomez this morning during care rounds and appreciate her input. In summary, Iman has a metastatic breast cancer that has not responded to multiple treatment regimens. So I believe that this terminal condition is not terribly impressive and I do think the patient has more than a 6-month life expectancy and therefore, not really a hospice candidate. She is not a candidate for further chemotherapy or other treatment. Palliative or hospice care is planned by oncology. I met with the patient. We discussed this. She understood this and expressed back that she understood that there was no further treatment plan. DISPOSITION: Plans are discharge to senior care care for what the patient hopes is short-term rehabilitation. She would like to get back home, which she understands is contingent on how well she does with the rehabilitation process. Her nephew was present and facilitated these discussions. Patient will be put on snf facility (SNF) level of care at this point.
[2018-07-22] MEDS: PRAVASTATIN 20 MG TAB PO SCH (21:46)
[2018-07-22] MEDS: LEVEMIR (INSULIN DETEMIR) 1 UNITS/0.01ML SC SCH (21:46)
[2018-07-23] MEDS: METOPROLOL TART 25 MG TABLET PO SCH ×4 (01:00→17:58)
[2018-07-23 06:00] VITALS: BP 142/77
[2018-07-23] MEDS: HEPARIN SOD (PORCINE) 5000 UNITS/ML VIAL SC SCH ×3 (06:33→21:44)
[2018-07-23] MEDS: SODIUM CHLORIDE NASAL 0.65% SPRAY BTL (OCEAN) SCH ×3 (09:00→21:45)
[2018-07-23] MEDS: ACETAMINOPHEN TAB 650MG DOSE (2X325MG) PO SCH ×2 (09:19→21:43)
[2018-07-23] MEDS: HumaLOG INSULIN (NovoLOG) PER UNIT SC SCH ×4 (09:20→21:43)
[2018-07-23] MEDS: LACTOBACILLUS ACIDOPHILUS CAP (BACID) PO SCH ×2 (09:20→17:57)
[2018-07-23] MEDS: ASPIRIN 81 MG ENTERIC TAB PO SCH (09:20)
[2018-07-23] MEDS: ASCORBIC ACID 500 MG TAB PO SCH (09:20)
[2018-07-23] MEDS: TAMOXIFEN CITRATE 10 MG TAB PO SCH (09:20)
[2018-07-23] MEDS: MULTIVITAMINS/MINERALS THERAP 1 TAB PO SCH (09:20)
--- NOTE | 2018-07-23 10:56 | IPN ---
DATE: 07/23/2018 Iman is [facility]. She is [facility] ([facility]) level of care. I had a long discussion with her yesterday in the presence of her nephew. I dropped today to see if she had any questions, which she did not. I again reiterated Dr. Gomez feels that she has a metastatic breast cancer that is both not amenable to chemotherapy, but also not aggressive to the point where she would be a hospice candidate. She expressed understanding of this. We had a good discussion yesterday. Her nephew sought me out to thank me for our treatment of his aunt, particularly our discussion yesterday.
[2018-07-23] MEDS: PRAVASTATIN 20 MG TAB PO SCH (21:42)
[2018-07-23] MEDS: LEVEMIR (INSULIN DETEMIR) 1 UNITS/0.01ML SC SCH (21:44)
[2018-07-24] MEDS: METOPROLOL TART 25 MG TABLET PO SCH ×4 (01:00→17:54)
[2018-07-24] MEDS: HEPARIN SOD (PORCINE) 5000 UNITS/ML VIAL SC SCH ×3 (05:22→21:30)
[2018-07-24 06:00] VITALS: BP 147/66
[2018-07-24] MEDS: HumaLOG INSULIN (NovoLOG) PER UNIT SC SCH ×4 (07:30→21:29)
[2018-07-24] MEDS: LACTOBACILLUS ACIDOPHILUS CAP (BACID) PO SCH ×2 (08:21→17:53)
[2018-07-24] MEDS: ASPIRIN 81 MG ENTERIC TAB PO SCH (08:21)
[2018-07-24] MEDS: MULTIVITAMINS/MINERALS THERAP 1 TAB PO SCH (08:21)
[2018-07-24] MEDS: SODIUM CHLORIDE NASAL 0.65% SPRAY BTL (OCEAN) SCH ×3 (08:22→21:31)
[2018-07-24] MEDS: ACETAMINOPHEN TAB 650MG DOSE (2X325MG) PO SCH ×2 (08:22→21:29)
[2018-07-24] MEDS: ASCORBIC ACID 500 MG TAB PO SCH (08:22)
[2018-07-24] MEDS: TAMOXIFEN CITRATE 10 MG TAB PO SCH (08:27)
[2018-07-24] MEDS: PRAVASTATIN 20 MG TAB PO SCH (21:29)
[2018-07-24] MEDS: LEVEMIR (INSULIN DETEMIR) 1 UNITS/0.01ML SC SCH (21:32)
[2018-07-25] MEDS: METOPROLOL TART 25 MG TABLET PO SCH ×5 (01:08→23:58)
[2018-07-25 06:00] VITALS: BP 122/67
[2018-07-25] MEDS: HEPARIN SOD (PORCINE) 5000 UNITS/ML VIAL SC SCH ×3 (06:37→20:51)
[2018-07-25] MEDS: ASPIRIN 81 MG ENTERIC TAB PO SCH (08:40)
[2018-07-25] MEDS: ACETAMINOPHEN TAB 650MG DOSE (2X325MG) PO SCH ×2 (08:40→20:50)
[2018-07-25] MEDS: MULTIVITAMINS/MINERALS THERAP 1 TAB PO SCH (08:40)
[2018-07-25] MEDS: TAMOXIFEN CITRATE 10 MG TAB PO SCH (08:40)
[2018-07-25] MEDS: ASCORBIC ACID 500 MG TAB PO SCH (08:40)
[2018-07-25] MEDS: LACTOBACILLUS ACIDOPHILUS CAP (BACID) PO SCH ×2 (08:40→18:02)
[2018-07-25] MEDS: SODIUM CHLORIDE NASAL 0.65% SPRAY BTL (OCEAN) SCH ×3 (08:41→20:53)
[2018-07-25] MEDS: HumaLOG INSULIN (NovoLOG) PER UNIT SC SCH ×4 (08:43→20:53)
--- NOTE | 2018-07-25 13:03 | DSES ---
ADMISSION DATE: 07/10/2018 TENTATIVE DISCHARGE DATE: 07/26/2018 Transferred to [facility] for short-term rehabilitation. PRINCIPAL DIAGNOSES: Metastatic breast cancer, malignant pleural effusion, status post thoracentesis. SECONDARY DIAGNOSES: Chronic kidney disease, diabetes, hyperlipidemia. HISTORY: Iman Kim was admitted with a pleural effusion. She has a history of breast cancer metastatic, unresponsive to multiple treatment regimens. A patient of Dr. Celena Gomez. I assumed the patient's care on 07/20/2018. By that point in time, she had already had thoracentesis with pathology showing metastatic breast cancer. Dr. Gomez saw the patient. She did not feel that she would benefit from further chemotherapy. Thought that she had a life expectancy of greater than 6 months so not really a hospice candidate but also not a candidate for further treatment. The patient received physical therapy. They did not feel that she could safely go home, so she is going to [facility] tomorrow. On the day before discharge, her blood pressure (BP) is 122/67, pulse is 76, oxygen (O2) saturation of 91% in room air. She is alert and conversant, in no distress. Lungs clear. Heart: Regular rate and rhythm. Abdomen: Soft, nontender. No peripheral edema. LABORATORIES: Most recent complete blood count (CBC) on 07/21/2018. White count 8.3, hemoglobin 10.2, platelets 327. Sodium 138, potassium 4.4, BUN 33, creatinine 1.2, glucose 207. Tumor markers were elevated. CA15-3 at 38.5 and CA27-29 at 66. Blood sugars were in the 100-200 range. DISPOSITION: The patient is discharged to [facility] tomorrow. MEDICINES: Are: - acetaminophen 650 twice a day as needed - amlodipine 10 mg daily - vitamin C - aspirin 81 mg daily - benazepril 20 mg daily - calcium 600 mg twice a day - glipizide/metformin 5/500 daily - Lantus insulin 30 units at bedtime - pravastatin 40 mg daily - tamoxifen 20 mg daily - torsemide 30 mg daily Activity as tolerated. [id number] diet.
[2018-07-25] MEDS: PRAVASTATIN 20 MG TAB PO SCH (20:51)
[2018-07-25] MEDS: LEVEMIR (INSULIN DETEMIR) 1 UNITS/0.01ML SC SCH (20:53)
[2018-07-26 05:42] VITALS: BP 124/60
[2018-07-26] MEDS: HEPARIN SOD (PORCINE) 5000 UNITS/ML VIAL SC SCH (05:42)
[2018-07-26] MEDS: METOPROLOL TART 25 MG TABLET PO SCH (05:42)
[2018-07-26 06:00] VITALS: BP 124/60
[2018-07-26] MEDS: HumaLOG INSULIN (NovoLOG) PER UNIT SC SCH (07:30)
[2018-07-26] MEDS: ASPIRIN 81 MG ENTERIC TAB PO SCH (08:14)
[2018-07-26] MEDS: ASCORBIC ACID 500 MG TAB PO SCH (08:14)
[2018-07-26] MEDS: LACTOBACILLUS ACIDOPHILUS CAP (BACID) PO SCH (08:14)
[2018-07-26] MEDS: MULTIVITAMINS/MINERALS THERAP 1 TAB PO SCH (08:14)
[2018-07-26] MEDS: TAMOXIFEN CITRATE 10 MG TAB PO SCH (08:14)
[2018-07-26] MEDS: SODIUM CHLORIDE NASAL 0.65% SPRAY BTL (OCEAN) SCH (08:15)
[2018-07-26] MEDS: ACETAMINOPHEN TAB 650MG DOSE (2X325MG) PO SCH (08:15)
== END 2018-07-26 11:25 | DRG 180 ==
LOC: M ED 20:02 → M ED INP 07-10 00:22 → M MSPAV 07-10 02:06
PROVIDERS: ADMIT Internal Medicine; ATTEND Family Medicine
PROC: 0W9B3ZX Drainage of Left Pleural Cavity, Percutaneous Approach, Diagnostic (ICD-10-PCS; principal; 2018-07-12)
DX: C78.1 Secondary malignant neoplasm of mediastinum (principal); I50.33 Acute on chronic diastolic (congestive) heart failure; J91.0 Malignant pleural effusion; N17.9 Acute kidney failure, unspecified; A08.0 Rotaviral enteritis; I13.0 Hypertensive heart and chronic kidney disease with heart failure and stage 1 through stage 4 chronic kidney disease, or unspecified chronic kidney disease; C50.911 Malignant neoplasm of unspecified site of right female breast; I50.9 Heart failure, unspecified; E11.22 Type 2 diabetes mellitus with diabetic chronic kidney disease; E11.21 Type 2 diabetes mellitus with diabetic nephropathy; N18.3 Chronic kidney disease, stage 3 (moderate); Z90.13 Acquired absence of bilateral breasts and nipples; Z90.49 Acquired absence of other specified parts of digestive tract; Z79.82 Long term (current) use of aspirin; Z79.4 Long term (current) use of insulin; Z79.899 Other long term (current) drug therapy; Z88.8 Allergy status to other drugs, medicaments and biological substances; I27.20 Pulmonary hypertension, unspecified; Z66 Do not resuscitate; Z92.21 Personal history of antineoplastic chemotherapy; Z92.3 Personal history of irradiation; E78.5 Hyperlipidemia, unspecified

== ENCOUNTER → 2018-07-29 | Outpatient (REF) | payer MEDICARE ==
[2018-07-29 09:52] LABS: HEMATOCRIT 30.1 % (36.0-47.0); HEMOGLOBIN 9.1 g/dl (12.0-15.5); MEAN CORPUSCULAR HEMOGLOBIN 31.3 pg (27.0-33.0); MEAN CORPUSCULAR HGB CONC 30.2 g/dl (32.0-36.5); MEAN CORPUSCULAR VOLUME 103.4 fl (80.0-96.0); PLATELET COUNT, AUTOMATED 461 10^3/uL (150-450); RED BLOOD COUNT 2.91 10^6/uL (4.00-5.40)
[2018-07-29 10:23] LABS: CALCIUM LEVEL 9.9 MG/DL (8.8-10.2); CREATININE FOR GFR 1.63 MG/DL (0.55-1.30); GLOMERULAR FILTRATION RATE 31.8 (>32); POTASSIUM SERUM 5.4 MEQ/L (3.5-5.1)
== END ==
PROVIDERS: ATTEND Internal Medicine
DX: I50.9 Heart failure, unspecified (principal)

== ENCOUNTER → 2018-08-02 | Outpatient (REF) | payer MEDICARE ==
[2018-08-02 13:45] LABS: CALCIUM LEVEL 9.7 MG/DL (8.8-10.2); CREATININE FOR GFR 1.84 MG/DL (0.55-1.30); GLOMERULAR FILTRATION RATE 27.7 (>32); POTASSIUM SERUM 5.1 MEQ/L (3.5-5.1)
--- NOTE | 2018-08-02 14:30 | REP ---
Chest, single AP view: Comparison is 07/17/2018. The right pleural effusion is unchanged. The right lower lobe atelectasis adjacent to the pleural effusion is unchanged. The right upper lobe is clear. The left lung is clear. Cardiac size is normal. There are multiple surgical clips in the right axilla, unchanged. Electronically Signed by Prosper Wheat MD 08/02/2018 02:22 P
== END ==
PROVIDERS: ATTEND Internal Medicine
DX: J90 Pleural effusion, not elsewhere classified (principal); J98.11 Atelectasis; J44.9 Chronic obstructive pulmonary disease, unspecified

== ENCOUNTER → 2018-08-03 | Outpatient (REF) | payer MEDICARE ==
[2018-08-03 14:00] LABS: HEMATOCRIT 29.6 % (36.0-47.0); HEMOGLOBIN 9.2 g/dl (12.0-15.5); MEAN CORPUSCULAR HEMOGLOBIN 31.6 pg (27.0-33.0); MEAN CORPUSCULAR HGB CONC 31.1 g/dl (32.0-36.5); MEAN CORPUSCULAR VOLUME 101.7 fl (80.0-96.0); PLATELET COUNT, AUTOMATED 459 10^3/uL (150-450); RED BLOOD COUNT 2.91 10^6/uL (4.00-5.40); WHITE BLOOD COUNT 9.2 10^3/uL (4.0-10.0)
== END ==
PROVIDERS: ATTEND Internal Medicine
DX: I50.9 Heart failure, unspecified (principal)

== ENCOUNTER → 2018-08-04 | Outpatient (REF) | payer MEDICARE ==
[~2018-08-04] MED LIST changes: -ASCO25TA PO; +CYMB1CAP4 PO; +METO1TAB7 PO; +PRED-351 PO; -PRED10TA PO; +VITA1TAB23 PO
[2018-08-04 09:37] LABS: CALCIUM LEVEL 10.2 MG/DL (8.8-10.2); CREATININE FOR GFR 1.82 MG/DL (0.55-1.30); POTASSIUM SERUM 4.5 MEQ/L (3.5-5.1)
== END ==
PROVIDERS: ATTEND Internal Medicine
DX: I50.9 Heart failure, unspecified (principal)

== ENCOUNTER → 2018-08-10 | Outpatient (REF) | payer MEDICARE ==
[~2018-08-10] MED LIST changes: +ASCO25TA PO; -CYMB1CAP4 PO; -METO1TAB7 PO; -PRED-351 PO; +PRED10TA PO; -VITA1TAB23 PO
[2018-08-10 09:43] LABS: HEMATOCRIT 38.6 % (36.0-47.0); MEAN CORPUSCULAR HEMOGLOBIN 27.8 pg (27.0-33.0); MEAN CORPUSCULAR HGB CONC 31.1 g/dl (32.0-36.5); MEAN CORPUSCULAR VOLUME 89.4 fl (80.0-96.0); PLATELET COUNT, AUTOMATED 120 10^3/uL (150-450); RED BLOOD COUNT 4.32 10^6/uL (4.00-5.40); WHITE BLOOD COUNT 5.4 10^3/uL (4.0-10.0)
[2018-08-10 10:01] LABS: BLOOD UREA NITROGEN 18 MG/DL (7-18); CALCIUM LEVEL 8.9 MG/DL (8.8-10.2); CARBON DIOXIDE LEVEL 28 MEQ/L (21-32); CHLORIDE LEVEL 107 MEQ/L (98-107); CREATININE FOR GFR 0.61 MG/DL (0.55-1.30); GLOMERULAR FILTRATION RATE > 60.0 (>32); GLUCOSE, FASTING 94 MG/DL (70-100); NT-PRO BNP 2110 PG/ML (<450); POTASSIUM SERUM 4.1 MEQ/L (3.5-5.1); SODIUM LEVEL 142 MEQ/L (136-145)
== END ==
PROVIDERS: ATTEND Internal Medicine
DX: I50.9 Heart failure, unspecified (principal)

== ENCOUNTER → 2018-08-12 | Outpatient (REF) | payer MEDICARE ==
[2018-08-12 16:24] LABS: HEMATOCRIT 30.7 % (36.0-47.0); HEMOGLOBIN 9.1 g/dl (12.0-15.5); MEAN CORPUSCULAR HEMOGLOBIN 31.4 pg (27.0-33.0); MEAN CORPUSCULAR HGB CONC 29.6 g/dl (32.0-36.5); MEAN CORPUSCULAR VOLUME 105.9 fl (80.0-96.0); PLATELET COUNT, AUTOMATED 414 10^3/uL (150-450); WHITE BLOOD COUNT 12.1 10^3/uL (4.0-10.0)
[2018-08-12 17:15] LABS: CALCIUM LEVEL 9.6 MG/DL (8.8-10.2); GLOMERULAR FILTRATION RATE 25.1 (>32); POTASSIUM SERUM 5.7 MEQ/L (3.5-5.1)
== END ==
PROVIDERS: ATTEND Internal Medicine
DX: I50.9 Heart failure, unspecified (principal)

== ENCOUNTER → 2018-08-16 | Outpatient (REF) | payer MEDICARE ==
[2018-08-16 12:24] LABS: CALCIUM LEVEL 9.6 MG/DL (8.8-10.2); CREATININE FOR GFR 1.87 MG/DL (0.55-1.30); GLOMERULAR FILTRATION RATE 27.2 (>32); POTASSIUM SERUM 5.1 MEQ/L (3.5-5.1)
== END ==
PROVIDERS: ATTEND Internal Medicine
DX: I50.9 Heart failure, unspecified (principal)

== ENCOUNTER → 2018-08-17 | Outpatient (REF) | payer MEDICARE ==
[~2018-08-17] MED LIST changes: +CYMB1CAP4 PO; +METO1TAB7 PO
[2018-08-17 09:46] LABS: HEMATOCRIT 29.4 % (36.0-47.0); HEMOGLOBIN 8.9 g/dl (12.0-15.5); MEAN CORPUSCULAR HGB CONC 30.3 g/dl (32.0-36.5); MEAN CORPUSCULAR VOLUME 102.4 fl (80.0-96.0); PLATELET COUNT, AUTOMATED 352 10^3/uL (150-450); RED BLOOD COUNT 2.87 10^6/uL (4.00-5.40); WHITE BLOOD COUNT 12.3 10^3/uL (4.0-10.0)
== END ==
PROVIDERS: ATTEND Internal Medicine
DX: I10 Essential (primary) hypertension (principal)

== ENCOUNTER → 2018-08-19 | Outpatient (REF) ==
[2018-08-19 10:54] LABS: CALCIUM LEVEL 10.3 MG/DL (8.8-10.2); CREATININE FOR GFR 1.51 MG/DL (0.55-1.30); GLOMERULAR FILTRATION RATE 34.8 (>32); POTASSIUM SERUM 4.7 MEQ/L (3.5-5.1)
== END ==
PROVIDERS: ATTEND Internal Medicine
DX: N17.9 Acute kidney failure, unspecified (principal)

== ENCOUNTER → 2018-08-24 | Outpatient (REF) ==
[2018-08-24 11:49] LABS: CALCIUM LEVEL 10.5 MG/DL (8.8-10.2); CREATININE FOR GFR 2.04 MG/DL (0.55-1.30); GLOMERULAR FILTRATION RATE 24.6 (>32)
--- NOTE | 2018-08-24 17:18 | REP ---
Chest x-ray: Single view. History: Acute bronchitis. History of breast carcinoma. Comparison chest x-ray: August 02, 2018. Findings: There are surgical clips in the right axillary soft tissues. There is evidence of bilateral pleural fluid with minimal blunting of the left lateral pleural angle and a moderate effusion apparent on the right. This is increased from the prior chest x-ray study. There is fullness in the right paratracheal region consistent with adenopathy in the mediastinum. Impression: Moderate to large right pleural effusion. Right paratracheal fullness consistent with adenopathy. Slight blunting of the left lateral pleural angles. Electronically Signed by Omar Daniel MD 08/24/2018 05:10 P
== END ==
PROVIDERS: ATTEND Internal Medicine
DX: J90 Pleural effusion, not elsewhere classified (principal); R91.8 Other nonspecific abnormal finding of lung field; N18.3 Chronic kidney disease, stage 3 (moderate); Z85.3 Personal history of malignant neoplasm of breast

== ENCOUNTER → 2018-08-25 | Outpatient (CLI) | payer MEDICARE ==
--- NOTE | 2018-08-25 16:01 | REP ---
CT CHEST WITHOUT IV CONTRAST: CT chest performed without IV contrast. Sagittal and coronal reconstruction images are performed. Comparison made with prior study of 07/10/2018. There is a large right pleural effusion which has increased in size since the prior study. There is mild to moderate left pleural effusion now seen which is essentially new. There is adjacent consolidative parenchymal opacity in both lungs which has increased since the prior study representing compressive atelectasis and possible infiltrate. Once again, large right mediastinal mass is noted, not well defined due to the lack of IV contrast. There is adjacent adenopathy in the middle mediastinum appearing similar to the prior study. There is moderate atherosclerotic calcification of the thoracic aorta without aneurysm. There is no significant pericardial effusion. Heart does not appear to be significantly enlarged. There are degenerative changes of the spine. IMPRESSION: Large right pleural effusion has increased since prior study of 07/10/2018. There is also increase in the associated adjacent consolidative parenchymal opacity in the right lung. There is a new mild to moderate left pleural effusion and adjacent consolidative opacity in the left lung. Right mediastinal mass and scattered mediastinal adenopathy appears similar to the prior study. Electronically Signed by Prosper Gaviria MD 08/25/2018 11:41 P
--- NOTE | 2018-08-25 16:05 | REP ---
Duplex extremity venous ultrasound: Bilateral lower extremity leona History: Bilateral leg swelling. Findings: The deep veins are anechoic and fully compressible from the groin to the popliteal fossa in the the left and right lower extremity. Color flow imaging is homogeneous. Spectral Doppler interrogation demonstrates intact respiratory variation in flow and normal manual augmentation of flow. There is no evidence of deep vein thrombosis. Some soft tissue edema is seen in the popliteal fossa soft tissues on the left. Impression: Negative bilateral lower extremity duplex venous ultrasound. No evidence of deep vein thrombosis. Electronically Signed by Omar Daniel MD 08/25/2018 03:56 P
== END ==
LOC: M RAD 14:35
PROVIDERS: ATTEND Physician Assistant
DX: C50.919 Malignant neoplasm of unspecified site of unspecified female breast (principal); R09.02 Hypoxemia; J90 Pleural effusion, not elsewhere classified

== ENCOUNTER → 2018-08-25 | Outpatient (REF) | PROVIDERS: ATTEND Internal Medicine | DX: R09.02 Hypoxemia (principal) ==